=== PATIENT | female | born 1995 | race Caucasian/White ===

== ENCOUNTER 2024-12-31 05:03 | Inpatient (IN) ==
--- OUTSIDE RECORDS SUMMARY | 2024-12-31 05:14 | External Medical Summary ---
Author Name Unknown Address Unknown Organization [id number]:[facility] [address] [place] [address] Laboratory Report Ordering Provider Test Date Status KELLEY OLIVARES 11/02/2024 09:12:05 Final Observation Date Value Abnormality Reference (Units ) Status Glucose [Moles/volume] in Serum or Plasma --1 hour post 50 g glucose PO 11/02/2024 09:12:05 107 70-129 (mg/dL) Final Performing Location [facility] [address] [place] [address]
--- OUTSIDE RECORDS SUMMARY | 2024-12-31 05:14 | External Medical Summary | Summary of Care ---
Author Name Unknown Organization [facility] Address [address] [place] [address] Phone [phone] Care Team Providers Care Station Installer And Repairer Name Role Phone Theresa Capps DO Primary Care Provider [phone] [phone] Reason for Visit * Reason Comments Return Visit Encounter Details Date Type Department Care Team (Late st Contact Info) Description 12/25/2024 8:30 AM EDT Office Visit Gynecology/Obstetric s Lukas Salguero [address] [place] [address] BackKimberly harrison CRNP [address] [place] [phone] Normal in third trimester*; Maternal asthma complicating Allergies No known active allergiesdocumented as of this encounter (statuses as of 12/25/2024) Medications Ventolin HFA 108 (90 Base) MCG/ACT Inhalation Aerosol SolutionIndicati ons:Acute cough Inhale 2 Puffs by mouth every 4 hours as needed for Wheezing. 8 g 1 05/21/2024 Active Complete Oral Capsule Therapy Pack Take by mouth. Active Omeprazole Magnesium 20 MG Oral Tablet Delayed Release (PriLOSEC OTC) Take 1 Tablet by mouth in the morning. Active documented as of this encounter (statuses as of 12/25/2024) Active Problems Problem Noted Date Diagnosed Date Normal 07/09/2024 Maternal asthma complicating 4 Overview (07/09/2024): Exercise induced, rare inhaler use Other allergic rhinitis 05/06/2005 Overview (07/05/2017): ICD-10 update of inactive term Ocular migraine Exercise-induced asthma Estimated Date of Delivery Comme nts Yes 02/03/2025 Based on last me nstrual period of 04/29/2024 documented as of this encounter (statuses as of 12/25/2024) Immunizations Name Administration Dates Next Due HPV Vaccine, 4-Valent 01/10/2009,05/22/2008,07/0 09/2007 Meningococcal Conjugate Vacc ine (Menactra/Menveo) 03/12/2008 PPD 11/26/2015,11/19/2015 Seasonal Influenza Vac., MDV , IM, 0.5 mL (Fluzone) 07/22/2010 TDAP (age 10 and older)(Boostrix) 07/10/2018 TDAP, Age 7 and older, IM (Adacel) 11/13/2024, documented as of this encounter Social History Tobacco Use Types Packs/Day Years Used Date Smoking Tobacco: Never Smokeless Tobacco: Never Alcohol Use Standard Drinks/Week Comments Not Currently 0 (1 standard drink = 0.6 oz pur e alcohol) social PHQ-2 Answer Date Recorded PHQ-2 Score 0 06/06/2019 Hunger Vital Sign Answer Date Recorded Within the past 12 months, y ou worried that your food would run out before you got the money to buy more. Never true 09/21/19 25 Within the past 12 months, t he food you bought just didn't last and you didn't have money to get more. Never true 09/21/2024 [place] Depression Scale Answer Date Recorded [place] Depression Scale Total 5 12/11/2024 The thought of harming myself has occurred to me . Never 12/11/2024 Childcare Answer Date Recorded Do you feel overwhelmed with taking care of a child, family member or friend? No 09/21/2024 Does your family need help f inding childcare? (Household - for ages 0-17 years) Not on file 09/21/2024 Clothing Answer Date Recorded Have you been unable to get clothing when it was really needed? No 09/21/2024 Is your family able to get c lothes or diapers when needed? (Household - for ages 0-17 years) Not on file 09/21/2024 Personal Safety Answer Date Recorded Do you feel unsafe or have concerns for your saf ety? No 09/21/2024 Do you have concerns for you r family's safety? (Household - for ages 0-17 years) Not on file 09/21/2024 Utilities Answer Date Recorded Do you have trouble paying y our heating, water, or electric bill? No 09/21/2024 Is your family able to pay t he heat, water, or electric bill? (Household - for ages 0-17 years) Not on file 09/21/2024 Does your family have access to good internet? (Household - for ages 0-17 years) Not on file 09/21/2024 Employment Status Answer Date Recorded Are you unemployed or without regular income? No 09/21/2024 Does the household have a re lar source of income? (Household - for ages 0-17 years) Not on file 09/21/2024 Social Connections Answer Date Recorded How often do you feel lonely or isolated from th ose around you? Rarely 09/21/2024 Financial Resource Strain Answer Date R ecorded Do you have any trouble payi ng for your medications, or do you think you might in the future? No 09/21/2024 Does your family have troubl e paying for medicine? (Household - for ages 0-17 years) Not on file 09/21/2024 Transportation Needs Answer Date Record ed Do you have trouble getting a ride to medical visits or work? (Adult - for ages 18 years and over) Not on file 09/21/2024 Does your family have a hard time getting a ride to doctors visits? (Household - for ages 0-17 years) Not on file 09/21/2024 Has lack of transportation k ept you from medical appointments, meetings, work, or from getting things needed for daily living? Check all that apply. Yes, it has kept me from non-medical meetings, appointments, work, or from getting things that I need 09/21/2024 Do you (or your family) have trouble finding or paying for a ride (transportation)? (Household - for ages 0-17 years) Not on file 09/21/2024 Housing Stability Answer Date Recorded Do you currently live in a s helter or have no steady place to sleep at night? No 09/21/2024 Do you think you are at risk of becoming homeless? (Adult - for ages 18 years and over) Not on file 09/21/2024 Does your family worry about paying for your home or becoming homeless? (Household - for ages 0-17 years) Not on file 0 09/21/2024 Are you homeless or worried that you might be in the future? No 09/21/2024 Are you (or your family) unique eless or worried that you might be in the future? (Household - for ages 0-17 years) Not on file Food Insecurity Answer Date Recorded Do you need food for this week? No 09/21/2024 Are you able to get enough f ood for your family? (Household - for ages 0-17 years) Not on file 09/21/2024 Does your family need food t his week? (Household - for ages 0-17 years) Not on file 09/21/2024 Do you always have enough fo od for your family? (Household - for ages 0-17 years) Not on file 09/21/2024 Food Insecurity Answer Date Recorded Within the past 12 months, y ou worried that your food would run out before you got the money to buy more. Never true 09/21/19 25 Within the past 12 months, t he food you bought just didn't last and you didn't have money to get more. Never true 09/21/2024 Do you need food for this week? No 09/21/2024 Estimated Date of Delivery Comme nts Yes 02/03/2025 Based on last me nstrual period of 04/29/2024 Sex and Gender Information Value Date Recorded Sex Assigned at Female 10/01/2022 8:39 PM EST Legal Sex Female 7:11 AM EST Gender Identity Female 10/01/2022 8:39 PM EST Sexual Orientation Straight 10/01/2022 8: 39 PM EST documented as of this encounter Last Filed Vital Signs Vital Sign Reading Time Taken Comments Blood Pressure 110/64 12/25/2024 8:15 AM EDT Pulse - - Temperature - - Respiratory Rate - - Oxygen Saturation - - Inhaled Oxygen Concentration - - Weight 86.2 kg (190 lb) 12/25/2024 8:15 AM EDT Height 167.6 cm (5' 6") 12/25/2024 8:15 AM EDT Body Mass Index 30.67 12/25/2024 8:15 AM EDT documented in this encounter Progress Notes * Kimberly Crenshaw CRNP - 12/25/2024 8:21 AM EDT 34w2d Some mild cramping on and off. No regular ctx. Thinks she has been losing her mucus plug; notes occasional spotting with wiping since Tuesday after intercourse. Baby is moving well. No LOF. Normal growth us/ on 12/04. FMLA paperwork to nursing. On exam, no active bleeding or LOF. Cervix <1 cm dilated, long. Call office with increase in bleeding, concern for LOF, >4 painful ctx in 1 hr, or decreased FM. 2 week return, discussed GBS at that time. College Archivist Documentation Provider requested sample hand. Name of sample hand: VIRGILIO Parsons * Rosa Elena Long LPN - 12/25/2024 8:15 AM EDT 34w2d Started to lose mucus plug on sat and feels like it has been coming out for days Having spotting with wiping Did have intercourse sun and that is when bleeding started documented in this encounter Plan of Treatment Upcoming Encounters Date Type Department Care Team (Late st Contact Info) Description 01/08/2025 8:00 AM EDT [facility] [address] [place] [phone] Trista Mitchell CRNP [address] [address] Health Maintenance Due Date Last Done Comments Depression Screening 2005 Pneumococcal Vaccine: Pediatrics (0 to 5 Years) and At-Risk Patients (6 to 18 Years and 19+ Years) (1 of 2 - PCV) 01/08/2012 Lipid Panel 2013 HPV/Co-Test 2023 COVID-19 Vaccine (1 - season) 2024 *SPIROMETRY ONCE FOR ASTHMA-ADULT 07/11/2024 Influenza Vaccine (FLU shot) (Season Ended) 2025 07/22/2010, 07/10/2003 Cervical Cancer Screening 10/04/2025 Pap Smear 10/04/2025 10/04/2022, 05/14, 04/25/2015, Additional history exists DTap/Tdap Vaccines (9 - Td or Tdap) 11/13/2034 11/13/2024, 07/10/2018, 09/27/2006, Additional history exists Hepatitis B Vaccine Completed 1993, 1993, 1993 MENINGOCOCCAL (MENACTRA/MENVEO) Aged Out 03/12/2008 No longer eligible based on patient's age to complete this topic HPV (Gardasil) Vaccine Completed 9, 05/22/2008, 03/12/2008 Meningitis B Vaccine (Bexsero/Trumemba) Aged Out No longer eligible based on patient's age to complete this topic documented as of this encounter Goals Goal Patient Goal Type Associated Problems Recent Progress Patient-Stated? Author Reminders Care Plan OB Reminders No Mychart, Provider documented as of this encounter Medical Devices Not on filedocumented as of this encounter Visit Diagnoses Diagnosis Normal in third trimester- Primary Maternal asthma complicating Other current maternal conditions classifiable elsewhere, complicating , childbirth, or the puerperium, unspecified as to episode of care documented in this encounter Additional Health Concerns Active Problems Noted Date Diagnosed Date OB Reminders 07/12/2024 documented as of this encounter Care Teams Station Installer And Repairer Relationship Specialty Start Date End Date Theresa Capps DO [address] [place] [address] PCP - General Family Medicine 05/21/24 documented as of this encounter
--- OUTSIDE RECORDS SUMMARY | 2024-12-31 05:14 | External Medical Summary ---
Author Name Unknown Address Unknown Organization [id number]:[facility] [address] [facility] [place] [address] Laboratory Report Ordering Provider Test Date Status ELISEBACKER 11/02/2024 09:12:05 Final Observation Date Value Abnormality Reference (Units ) Status SYNC LEUKOCYTES IN BLOOD BY AUTOMATED COUNT 11/02/2024 09:12:05 9.84 4.00-10.80 (K/uL) Final Segs 11/02/2024 09:12:05 67.9 40.0-75.0 (%) Final Lymphs % 11/02/2024 09:12:05 22.0 18.0-42.0 (%) Final Monos 11/02/2024 09:12:05 6.6 1.0-11.0 (%) Final Eosinophils 11/02/2024 09:12:05 0.9 0.0-6.0 (%) Final Basos 11/02/2024 09:12:05 0.6 0.0-2.0 (%) Final Immature Granulocyte, Percent 11/02/2024 09:12:05 2.0 0.0-2.0 (%) Final Absolute Segs 11/02/2024 09:12:05 6.68 1.80-7.70 (K/uL) Final Lymphs, absolute 11/02/2024 09:12:05 2.16 1.00-4.80 (K/ul) Final Monos, Abs 11/02/2024 09:12:05 0.65 0.00-1.10 (K/uL) Final Eos, Abs 11/02/2024 09:12:05 0.09 0.00-0.70 (K/uL) Final Basos, Abs 11/02/2024 09:12:05 0.06 0.00-0.20 (K/uL) Final Immature Granulocytes, Number 11/02/2024 09:12:05 0.20 0.00-0.20 (K/uL) Final Performing Location [facility] [address] [facility] [address]
--- OUTSIDE RECORDS SUMMARY | 2024-12-31 05:14 | External Medical Summary | Summary of Care ---
Author Name Unknown Organization [facility] Address [address] [place] [address] Phone [phone] Care Team Providers Care Manufacturing Laborer Name Role Phone Theresa Capps DO Primary Care Provider [phone] [phone] Reason for Visit * Reason Onset Date Comments Advice 12/24/[address] Mancilla er Encounter Details Date Type Department Care Team (Late st Contact Info) Description 12/24/2024 Telephone Gynecology/Obstetrics [facility] [address] [place] [address] Esau Ordonez MD [address] [place] [phone] Advice (Rev with Dr. Ordonez) Allergies No known active allergiesdocumented as of this encounter (statuses as of 12/24/2024) Medications Ventolin HFA 108 (90 Base) MCG/ACT [...] as of this encounter (statuses as of 12/24/2024) Active Problems Problem Noted Date Diagnosed Date Normal 07/09/2024 Maternal asthma complicating Overview (07/09/2024): Exercise induced, rare inhaler use Other allergic rhinitis 05/06/2005 Overview (07/05/2017): ICD-10 update of inactive term Ocular migraine Exercise-induced asthma Estimated Date of Delivery Comme nts Yes 02/03/2025 Based on last me nstrual period of 04/29/2024 documented as of this encounter (statuses as of 12/24/2024) Immunizations Name Administration Dates Next Due DTP/HIB (Tetramune) 1993,1993 DTWP - Dipth/Tet/Whole Cell Pertussis 1993 DTaP Dipth/Tet/Acell Pertussis (Infanrix), Peds 01/14/1998,07/02/1994 HPV Vaccine, 4-Valent 01/10/2009,05/22/2008,09/2007 Haemophilius B (HIB), unspecified 03/31/1994, Hepatitis B Vaccine 1993,1993,1992 IPV - Polio Virus Vaccine (Inact) 01/14/1998 MMR - Measles/Mumps/Rubella Vaccine 01/14/1998,0 03/31/1994 Meningococcal Conjugate Vacc ine (Menactra/Menveo) 03/12/2008 OPV - Polio Virus Vaccine (Oral) 07/02/1994,0904/1993,1993 PPD 11/26/2015,11/19/2015 Seasonal Influenza Vac., MDV , IM, 0.5 mL (Fluzone) 07/22/2010,07/10/2003 TDAP (age 10 and older)(Boostrix) 07/10/2018 TDAP, [...] money to get more. Never true 09/21/2024 [place] Depression Scale Answer Date Recorded [place] Depression Scale Total 5 12/11/2024 The thought [...] 09/21/2024 Does the household have a re gular source of income? (Household - for ages [...] PM EST documented as of this encounter Miscellaneous Notes * Telephone Encounter - Tracey Goldman RN - 12/24/2024 10:30 AM EDT Patient called and made aware of advice from Dr. Ordonez, Advised her to call with any changes. She verbalized understanding. * Telephone Encounter - Tracey Goldman RN - 12/24/2024 10:12 AM EDT Patient reviewed with Dr. Ordonez, She is to monitor, not concerned at this time, call with any changes [facility] * Telephone Encounter - Tracey Goldman RN - 12/24/2024 9:20 AM EDT Patient calling in , she is 34w1d states that she thinks she lost her mucus plug over the past couple of days, has a thick mucus like discharge, now since last night started spotting on and off , noticed it on toilet paper with wiping, but not every time she used the restroom. Today it is now blood mixed in a mucus discharge Denies pain pelvic/abd pain, no heavy bleeding + FM this morning Denies clear fluid leaking + pelvic pressure, that is not new/ongoing No contractions. Patient has BRANDON appt in office tomorrow AM. Advised patient to monitor for any new symptoms, monitor movements and contact office with any changes. Please advise. documented in this encounter Plan of Treatment Upcoming Encounters Date Type Department Care Team (Late st Contact Info) Description 12/25/2024 8:30 AM EDT Office Visit Gynecology/Obstetrics [facility] [address] [place] [phone] Backer, VIRGILIO Crane [address] [place] [address] Health Maintenance Due Date Last Done Comments Depression Screening 2005 Pneumococcal Vaccine: Pediatrics (0 to 5 Years) and At-Risk Patients (6 to 18 Years and 19+ Years) (1 of 2 - PCV) 01/08/2012 Lipid Panel 2013 HPV/Co-Test 2023 COVID-19 Vaccine ( - season) 2024 *SPIROMETRY ONCE FOR ASTHMA-ADULT [...] Not on filedocumented as of this encounter Additional Health Concerns Active Problems Noted Date Diagnosed Date OB Reminders 07/12/2024 documented as of this encounter Care Teams Manufacturing Laborer Relationship Specialty Start Date End Date Theresa Capps DO [address] [place] [address] PCP - General Family Medicine 05/21/24 documented as of this encounter
--- OUTSIDE RECORDS SUMMARY | 2024-12-31 05:14 | External Medical Summary | Summary of Care ---
Author Name Unknown Organization [facility] Address [address] [place] [address] Phone [phone] Care Team Providers Care Rolling Mill Operator Name Role Phone Theresa Capps DO Primary Care Provider [phone] [phone] Reason for Visit * Reason Comments Return Visit Encounter Details Date Type Department Care Team (Late st Contact Info) Description 11/02/2024 8:30 AM EST Office Visit Gynecology/Obstetric s Luk[facility] Salguero [address] [place] [address] Trista Mitchell CRNP [address] [place] [address] Normal in second trimester*; Maternal asthma complicating Allergies No known active allergiesdocumented as of this encounter (statuses as of 11/02/2024) Medications Ventolin HFA 108 (90 Base) MCG/ACT Inhalation Aerosol SolutionIndicati ons:Acute cough Inhale 2 Puffs by mouth every 4 hours as needed for Wheezing. 8 g 1 05/21/2024 Active Complete Oral Capsule Therapy Pack Take by mouth. Active documented as of this encounter (statuses as of 11/02/2024) Active Problems Problem Noted Date Diagnosed Date Normal 07/09/2024 Maternal asthma complicating Overview (07/09/2024): Exercise induced, rare inhaler use Other allergic rhinitis 05/06/2005 Overview (07/05/2017): ICD-10 update of inactive term Ocular migraine Exercise-induced asthma Estimated Date of Delivery Comme nts Yes 02/03/2025 Based on last me nstrual period of 04/29/2024 documented as of this encounter (statuses as of 11/02/2024) Immunizations Name Administration Dates Next Due HPV Vaccine, 4-Valent 01/10/2009,05/22/2008,07/0 09/2007 Meningococcal Conjugate Vacc ine (Menactra/Menveo) 03/12/2008 PPD 11/26/2015,11/19/2015 Seasonal Influenza Vac., MDV , IM, 0.5 mL (Fluzone) 07/22/2010 TDAP (age 10 and older)(Boostrix) 07/10/2018 TDAP, Age 7 and older, IM (Adacel) 09/27/2006 documented as of this encounter Social History [...] money to get more. Never true 09/21/2024 [place] Depression Scale Answer Date Recorded [place] Depression Scale Total 9 07/09/2024 The thought of harming myself has occurred to me . Never 07/09/2024 Childcare Answer Date Recorded Do you feel [...] Sign Reading Time Taken Comments Blood Pressure 106/64 11/02/2024 8:20 AM EST Pulse - - Temperature - - Respiratory Rate - - Oxygen Saturation - - Inhaled Oxygen Concentration - - Weight 81.2 kg (179 lb) 11/02/2024 8:20 AM EST Height 167.6 cm (5' 6") 11/02/2024 8:20 AM EST Body Mass Index 28.89 11/02/2024 8:20 AM EST documented in this encounter Progress Notes * Trista Mitchell CRNP - 11/02/2024 8:49 AM EST 26w5d C/o heartburn. Tums not helping. Suggested omeprazole daily. No other concerns. Baby is active. No contractions or bleeding. Glucola today. TDAP next visit. VIRGILIO Alonso documented in this encounter Nursing Notes * Rosa Elena Long LPN - 11/02/2024 8:20 AM EST 26w5d Doing glucola today documented in this encounter Plan of Treatment Upcoming Encounters Date Type Department Care Team (Late st Contact Info) Description 11/13/2024 8:45 AM EST Office Visit Gynecology/Obstetrics [facility] [address] [address] BackerKimberly CRNP [address] [place] [address] Health Maintenance Due Date Last Done Comments Pneumococcal Vaccine: Pediatrics (0 to 5 Years) and At-Risk Patients (6 to 18 Years and 19+ Years) (1 of 2 - PCV) 01/08/2012 Depression Screening 06/06/2020 06/06/2019 HPV/Co-Test 2023 COVID-19 Vaccine ( - season) 2024 Influenza Vaccine (FLU shot) (#1) 2024 07/22/2010, 07/10/2003 *SPIROMETRY ONCE FOR ASTHMA-ADULT 07/11/2024 Cervical Cancer Screening 10/04/2025 Pap Smear 10/04/2025 10/04/2022, 05/14, 04/25/2015, Additional history exists DTap/Tdap Vaccines (8 - Td or Tdap) 07/10/2028 07/10/2018, 09/27/2006, 01/14/1998, Additional history exists Hepatitis B Vaccine Completed [...] Author Reminders Care Plan OB Reminders No Dorishart, Provider documented as of this encounter Medical Devices Not on filedocumented as of this encounter Visit Diagnoses Diagnosis Normal in second trimester- Primary Maternal asthma complicating Other current maternal conditions classifiable elsewhere, complicating , childbirth, or the puerperium, unspecified as to episode of care documented in this encounter Additional Health Concerns Active Problems Noted Date Diagnosed Date OB Reminders 07/12/2024 documented as of this encounter Care Teams Rolling Mill Operator Relationship Specialty Start Date End Date Theresa Capps DO [address] [address] PCP - General Family Medicine 05/21/24 documented as of this encounter
--- OUTSIDE RECORDS SUMMARY | 2024-12-31 05:14 | External Medical Summary | Summary of Care ---
Author Name Unknown Organization [facility] Address [address] [place] [address] Phone [phone] Care Team Providers Care Roving Winder Name Role Phone Theresa Capps DO Primary Care Provider +1 [phone] Reason for Visit * Reason Comments Return Visit Encounter Details Date Type Department Care Team (Late st Contact Info) Description 09/07/2024 11:30 AM EST Office Visit Gynecology/Obstetric s Luk[facility] Salguero [address] [place] [address] BackKimberly harrison CRNP [address] [place] [address] Normal in second trimester*; Maternal asthma complicating Allergies No known active allergiesdocumented as of this encounter (statuses as of 09/07/2024) Medications Ventolin HFA 108 (90 Base) MCG/ACT Inhalation Aerosol SolutionIndicati ons:Acute cough Inhale 2 Puffs by mouth every 4 hours as needed for Wheezing. 8 g 1 05/21/2024 Active Complete Oral Capsule Therapy Pack Take by mouth. Active documented as of this encounter (statuses as of 09/07/2024) Active Problems Problem Noted Date Diagnosed Date Normal 07/09/2024 Maternal asthma complicating Overview (07/09/2024): Exercise induced, rare inhaler use Other allergic rhinitis 05/06/2005 Overview (07/05/2017): ICD-10 update of inactive term Ocular migraine Exercise-induced asthma Estimated Date of Delivery Comme nts Yes 02/03/2025 Based on last me nstrual period of 04/29/2024 documented as of this encounter (statuses as of 09/07/2024) Immunizations Name Administration Dates Next Due HPV [...] the money to buy more. Never true 09/06/20 24 Within the past 12 months, t he food you bought just didn't last and you didn't have money to get more. Never true 09/06/2024 [place] Depression Scale Answer Date Recorded [place] Depression Scale Total 9 07/09/2024 The thought of harming myself has occurred to me . Never 07/09/2024 Childcare Answer Date Recorded Do you feel overwhelmed with taking care of a child, family member or friend? No 09/06/2024 Does your family need help f inding childcare? (Household - for ages 0-17 years) Not on file 09/06/2024 Clothing Answer Date Recorded Have you been unable to get clothing when it was really needed? No 09/06/2024 Is your family able to get c lothes or diapers when needed? (Household - for ages 0-17 years) Not on file 09/06/2024 Personal Safety Answer Date Recorded Do you feel unsafe or have concerns for your saf ety? No 09/06/2024 Do you have concerns for you r family's safety? (Household - for ages 0-17 years) Not on file 09/06/2024 Utilities Answer Date Recorded Do you have trouble paying y our heating, water, or electric bill? No 09/06/2024 Is your family able to pay t he heat, water, or electric bill? (Household - for ages 0-17 years) Not on file 09/06/2024 Does your family have access to good internet? (Household - for ages 0-17 years) Not on file 09/06/2024 Employment Status Answer Date Recorded Are you unemployed or without regular income? No 09/06/2024 Does the household have a re lar source of income? (Household - for ages 0-17 years) Not on file 09/06/2024 Social Connections Answer Date Recorded How often do you feel lonely or isolated from th ose around you? Rarely 09/06/2024 Financial Resource Strain Answer Date R ecorded Do you have any trouble payi ng for your medications, or do you think you might in the future? No 09/06/2024 Does your family have troubl e paying for medicine? (Household - for ages 0-17 years) Not on file 09/06/2024 Transportation Needs Answer Date Record ed Do you have trouble getting a ride to medical visits or work? (Adult - for ages 18 years and over) Not on file 09/06/2024 Does your family have a hard time getting a ride to doctors visits? (Household - for ages 0-17 years) Not on file 09/06/2024 Has lack of transportation k ept you from medical appointments, meetings, work, or from getting things needed for daily living? Check all that apply. No 09/06/2024 Do you (or your family) have trouble finding or paying for a ride (transportation)? (Household - for ages 0-17 years) Not on file 09/06/2024 Housing Stability Answer Date Recorded Do you currently live in a s helter or have no steady place to sleep at night? No 09/06/2024 Do you think you are at risk of becoming homeless? (Adult - for ages 18 years and over) Not on file 09/06/2024 Does your family worry about paying for your home or becoming homeless? (Household - for ages 0-17 years) Not on file 1 11/07/2023 Are you homeless or worried that you might be in the future? No 09/06/2024 Are you (or your family) unique eless or worried that you might be in the future? (Household - for ages 0-17 years) Not on file Food Insecurity Answer Date Recorded Do you need food for this week? No 09/06/2024 Are you able to get enough f ood for your family? (Household - for ages 0-17 years) Not on file 09/06/2024 Does your family need food t his week? (Household - for ages 0-17 years) Not on file 09/06/2024 Do you always have enough fo od for your family? (Household - for ages 0-17 years) Not on file 09/06/2024 Estimated Date of Delivery Comme nts Yes [...] Sign Reading Time Taken Comments Blood Pressure 118/78 09/07/2024 11:34 AM EST Pulse - - Temperature - - Respiratory Rate - - Oxygen Saturation - - Inhaled Oxygen Concentration - - Weight 76.6 kg (168 lb 15.4 oz) 024 11:34 AM EST Height - - Body Mass Index 27.27 07/09/2024 9:23 AM EDT documented in this encounter Progress Notes * Kimberly Crenshaw CRNP - 09/07/2024 11:45 AM EST 18w5d Doing well, no movement yet. Occasional mild cramping. No bleeding. Asthma well controlled. Discussed MSAFP and role in screening for ONTD; pt wishes to check insurance coverage. Provided with CPT code, advised to do testing by 22w6d. Return visit in 4 weeks; will schedule anatomy scan at 20 weeks. VIRGILIO [place] * Brionna Gregg CMA - 09/07/2024 11:34 AM EST 18w5d Denies any concerns documented in this encounter Plan of Treatment Upcoming Encounters Date Type Department Care Team (Late st Contact Info) Description 09/21/2024 8:15 AM EST Imaging Radiology [facility] [address] [place] [address] 10/05/2024 8:45 AM EST Office Visit Gynecology/Obstetrics [facility] [address] [place] [address] Kimberly Crenshaw CRNP [address] [place] [address] Scheduled Orders Name Type Priority Associated Diagnoses Orde r Schedule US PREG SINGLE/1ST GEST, 14 WEEKS OR LATER Medical Imaging Routine Normal in second trimester Expected: 09/17/2024 (Approximate), Expires: 10/08/2025 Health Maintenance Due Date Last Done Comments [...] HPV (Gardasil) Vaccine Completed 9, 05/22/2008, 03/12/2008 documented as of this encounter Goals Goal [...] documented as of this encounter Care Teams Roving Winder Relationship Specialty Start Date End Date Theresa aCpps DO [address] [place] [address] PCP - General Family Medicine 05/21/24 documented as of this encounter
--- OUTSIDE RECORDS SUMMARY | 2024-12-31 05:14 | External Medical Summary | Summary of Care ---
Author Name Unknown Organization [facility] Address [address] [place] [address] Phone [phone] Care Team Providers Care Cooker Mechanic Name Role Phone Theresa Capps DO Primary Care Provider +1 [phone] Reason for Visit * Reason Comments Return Visit Encounter Details Date Type Department Care Team (Late st Contact Info) Description 11/13/2024 8:45 AM EST Office Visit Gynecology/Obstetric s [facility] [address] [place] [address] BackKimberly harrison CRNP [address] [place] [address] Normal in third trimester*; Maternal asthma complicating ; Need for prophylactic vaccination with combined dmukokwwct-pkxtrtz-hf rtussis (DTP) vaccine Allergies No known active allergiesdocumented as of this encounter (statuses as of 11/13/2024) Medications Ventolin HFA 108 (90 Base) MCG/ACT [...] as of this encounter (statuses as of 11/13/2024) Active Problems Problem Noted Date Diagnosed Date Normal 07/09/2024 Maternal asthma complicating 4 Overview (07/09/2024): Exercise induced, rare inhaler use Other allergic rhinitis 05/06/2005 Overview (07/05/2017): ICD-10 update of inactive term Ocular migraine Exercise-induced asthma Estimated Date of Delivery Comme nts Yes 02/03/2025 Based on last me nstrual period of 04/29/2024 documented as of this encounter (statuses as of 11/13/2024) Immunizations Name Administration Dates Next Due HPV [...] money to get more. Never true 09/21/2024 [place] Depression Scale Answer Date Recorded [place] Depression Scale Total 9 07/09/2024 The thought [...] No 09/21/2024 Does the household have a [facility] source of income? (Household - for ages [...] Sign Reading Time Taken Comments Blood Pressure 118/58 11/13/2024 8:41 AM EST Pulse - - Temperature - - Respiratory Rate - - Oxygen Saturation - - Inhaled Oxygen Concentration - - Weight 82.2 kg (181 lb 3.2 oz) 11/13/2024 8:41 A M EST Height 167.6 cm (5' 6") 11/13/2024 8:41 AM EST Body Mass Index 29.25 11/13/2024 8:41 AM EST documented in this encounter Progress Notes * Kimberly Crenshaw CRNP - 11/13/2024 8:56 AM EST 28w2d Doing well, good movement. Discussed [facility] and when to call with concerns. Denies ctx, leaking, bleeding. Accepts Tdap, discussed ensuring others are up to date on pertussis vaccine. Some RUQ pain, relieved with massage or position changes. Tends to occur when she's full. Reassured, call if more persistent or intense. BP is normal. Taking prilosec for heartburn, working well; can take BID if needed. Encouraged to look into childbirth classes. 2 week return VIRGILIO [place] * Kristina Rosas LPN - 11/13/2024 8:43 AM EST 28w2d Having some vomiting d/t heightened gag reflex. Having some acid reflux taking Omeprazole and helping but not completely taking away Having some right sided pain near ribs, but states it does go away. States feeling it after eating/drinking a lot lasting about a half an hr at a time. Pain relief by changing positions. Off and on through out the day. documented in this encounter Nursing Notes * Kristina Rosas LPN - 11/13/2024 9:01 AM EST Patient here for TDAP injection. Patient doing well no complaints. Injection given IM as ordered. Patient tolerated well. Patient to follow up as directed. Patient instructed to call if any complications. Patient verbalized understanding of instructions given. Injection site: Left Deltoid Medication Source: Dispensed stock medication documented in this encounter Plan of Treatment Upcoming Encounters Date Type Department Care Team (Late st Contact Info) Description 11/29/2024 8:15 AM EDT Office Visit Gynecology/Obstetrics [facility] [address] [place] [address] Kimberly Crenshaw CRNP [address] [place] [address] Health Maintenance Due Date Last Done Comments [...] puerperium, unspecified as to episode of care Need for prophylactic vaccination with combined kpjckdkioy-femapau-hmkqyappa (DTP) vaccine documented in this encounter Additional Health Concerns Active Problems Noted Date Diagnosed Date OB Reminders 07/12/2024 documented as of this encounter Care Teams Cooker Mechanic Relationship Specialty Start Date End Date Theresa Capps DO [address] [place] [address] PCP - General Family Medicine 05/21/24 documented as of this encounter
--- OUTSIDE RECORDS SUMMARY | 2024-12-31 05:14 | External Medical Summary ---
Author Name Unknown Address Unknown Organization K01[place] [place] [address] [facility] [address] Laboratory Report Ordering Provider Test Date Status KELLEY OLIVARES 11/02/2024 09:12:05 Final Observation Date Value Abnormality Reference (Units ) Status Treponema pallidum Ab [Presence] in Serum by Immunoassay 11/02/2024 09:12:05 Nonreactive Nonreactive Final No serologic evidence of syp hilis. No additional testing clinicially indicated at this time. Consider repeat testing in 2-4 weeks if acute or primary syphilis is suspected. Performing Location [facility] [place] [address] [place] [address]
--- OUTSIDE RECORDS SUMMARY | 2024-12-31 05:14 | External Medical Summary | Summary of Care ---
Author Name Unknown Organization [facility] Address [address] [place] [address] Phone [phone] Care Team Providers Care Substation Operator Automatic Name Role Phone Theresa Capps DO Primary Care Provider +1 [phone] Reason for Visit * Reason Onset Date Comments Advice 12/24/[address] Mancilla er Encounter Details Date Type Department Care Team (Late st Contact Info) Description 12/24/2024 Telephone Gynecology/Obstetrics [facility] [address] [place] [address] Esau Ordonez MD [address] [place] [address] Advice (Rev with Dr. Ordonez) Allergies No [...] money to get more. Never true 09/21/2024 [place] Depression Scale Answer Date Recorded [place] Depression Scale Total 5 12/11/2024 The thought [...] with any changes [facility] * Telephone Encounter - Tracey Goldman [...] Luk[facility] Salguero [address] [place] [address] Backer, VIRGILIO Crane [address] [place] [address] Health Maintenance Due Date Last Done Comments [...] documented as of this encounter Care Teams Substation Operator Automatic Relationship Specialty Start Date End Date Theresa Capps DO [address] [place] [address] PCP - General Family Medicine 05/21/24 documented as of this encounter
--- OUTSIDE RECORDS SUMMARY | 2024-12-31 05:14 | External Medical Summary | Summary of Care ---
Author Name Unknown Organization [facility] Address [address] [place] [address] Phone [phone] Care Team Providers Care Visual Stylist Name Role Phone Theresa Capps DO Primary Care Provider +1 [phone] Reason for Visit * Reason Comments Return Visit Encounter Details Date Type Department Care Team (Late st Contact Info) Description 10/05/2024 8:45 AM EST Office Visit Gynecology/Obstetric s Luk[facility] Salguero [address] [place] [address] BackKimberly harrison CRNP [address] [place] [address] Normal in second trimester*; Maternal asthma complicating Allergies No known active allergiesdocumented as of this encounter (statuses as of 10/05/2024) Medications Ventolin HFA 108 (90 Base) MCG/ACT Inhalation Aerosol SolutionIndicati ons:Acute cough Inhale 2 Puffs by mouth every 4 hours as needed for Wheezing. 8 g 1 05/21/2024 Active Complete Oral Capsule Therapy Pack Take by mouth. Active documented as of this encounter (statuses as of 10/05/2024) Active Problems Problem Noted Date Diagnosed Date Normal 07/09/2024 Maternal asthma complicating Overview (07/09/2024): Exercise induced, rare inhaler use Other allergic rhinitis 05/06/2005 Overview (07/05/2017): ICD-10 update of inactive term Ocular migraine Exercise-induced asthma Estimated Date of Delivery Comme nts Yes 02/03/2025 Based on last me nstrual period of 04/29/2024 documented as of this encounter (statuses as of 10/05/2024) Immunizations Name Administration Dates Next Due HPV [...] money to get more. Never true 09/21/2024 [place] Depression Scale Answer Date Recorded [place] Depression Scale Total 9 07/09/2024 The thought [...] ages 0-17 years) Not on file 09/21/2024 Estimated Date of Delivery Comme nts [...] Sign Reading Time Taken Comments Blood Pressure 104/60 10/05/2024 8:46 AM EST Pulse - - Temperature - - Respiratory Rate - - Oxygen Saturation - - Inhaled Oxygen Concentration - - Weight 78.5 kg (173 lb) 10/05/2024 8:46 AM EST Height - - Body Mass Index 27.92 07/09/2024 9:23 AM EDT documented in this encounter Progress Notes * Kimberly Crenshaw CRNP - 10/05/2024 8:52 AM EST 22w5d + movement. No severe cramping/bleeding. Breast pump form completed for pt. Labs with next visit, return in 4 weeks. VIRGILIO [place] * Hanna Montes LPN - 10/05/2024 8:45 AM EST 22w5d Denies vaginal bleeding/rom + movement No new concerns documented in this encounter Plan of Treatment Upcoming Encounters Date Type Department Care Team (Late st Contact Info) Description 11/02/2024 8:20 AM EST Laboratory Laboratory, [facility] [address] [place] [id number] [facility] [address] [place] [address] 11/02/2024 8:30 AM EST Office Visit Gynecology/Obstetrics [facility] [address] [place] [address] Trista Mitchell CRNP [address] [place] [address] Scheduled Orders Name Type Priority Associated Diagnoses Orde r Schedule 50-G GESTATIONAL GLUCOSE, 1 HOUR Lab Routine Normal in second trimester Expected: 11/05/2024 (Approximate), Expires: 10/05/2025 CBC WITH WBC DIFFERENTIAL AND ANEMIA REFLEX WORKUP Lab Routine Normal in second trimester Expected: 11/05/2024 (Approximate), Expires: 10/05/2025 SYPHILIS ANTIBODY SCREEN WITH REFLEX TO RPR Lab Routine Normal in second trimester Expected: 11/05/2024 (Approximate), Expires: 10/05/2025 Health Maintenance Due Date Last Done Comments Pneumococcal Vaccine: Pediatrics (0 to 5 Years) and At-Risk Patients (6 to 18 Years and 19+ Years) (1 of 2 - PCV) 01/08/2012 Depression Screening 06/06/2020 06/06/2019 HPV/Co-Test 2023 COVID-19 Vaccine ( - 2024-25 season) 2024 Influenza Vaccine (FLU shot) (#1) [...] Author Reminders Care Plan OB Reminders No Gilt, Provider documented as of this encounter Medical [...] documented as of this encounter Care Teams Visual Stylist Relationship Specialty Start Date End Date Theresa Capps DO [address] [place] [address] PCP - General Family Medicine 05/21/24 documented as of this encounter
--- OUTSIDE RECORDS SUMMARY | 2024-12-31 05:14 | External Medical Summary | Summary of Care ---
Author Name Unknown Organization [facility] Address [address] [place] [address] Phone [phone] Care Team Providers Care Pattern Chain Builder Name Role Phone Theresa Capps DO Primary Care Provider +1 [phone] Encounter Details Date Type Department Care Team (Late st Contact Info) Description 09/24/2024 Telephone Gynecology/Obstetrics [facility] [address] [facility] [place] [address] BackerKimberly CRNP [address] [facility] [place] [address] Allergies No known active allergiesdocumented as of this encounter (statuses as of 09/24/2024) Medications Ventolin HFA 108 (90 Base) MCG/ACT Inhalation Aerosol SolutionIndicati ons:Acute cough Inhale 2 Puffs by mouth every 4 hours as needed for Wheezing. 8 g 1 05/21/2024 Active Complete Oral Capsule Therapy Pack Take by mouth. Active documented as of this encounter (statuses as of 09/24/2024) Active Problems Problem Noted Date Diagnosed Date Normal 07/09/2024 Maternal asthma complicating Overview (07/09/2024): Exercise induced, rare inhaler use Other allergic rhinitis 05/06/2005 Overview (07/05/2017): ICD-10 update of inactive term Ocular migraine Exercise-induced asthma Estimated Date of Delivery Comme nts Yes 02/03/2025 Based on last me nstrual period of 04/29/2024 documented as of this encounter (statuses as of 09/24/2024) Immunizations Name Administration Dates Next Due HPV [...] money to get more. Never true 09/21/2024 [place] Depression Scale Answer Date Recorded [place] Depression Scale Total 9 07/09/2024 The thought [...] encounter Miscellaneous Notes * Telephone Encounter - Prisca Villarreal LPN - 09/24/2024 8:48 AM EST Pt called in stating that she had consumed spoiled milk. Pt expressed concerns about spoiled milk in relation to the . This nurse educated pt to monitor for digestive symptoms and on diet precautions while . Pt agreeable. Prisca Villarreal LPN 09/24/2024 8:50 AM documented in this encounter Plan of Treatment Upcoming Encounters Date Type Department Care Team (Late st Contact Info) Description 10/05/2024 8:45 AM EST Office Visit Gynecology/Obstetrics [address] [place] [address] Kimberly Crenshaw CRNP [address] [place] [address] Health Maintenance Due Date Last Done Comments Pneumococcal Vaccine: Pediatrics (0 to 5 Years) and At-Risk Patients (6 to 18 Years and 19+ Years) (1 of 2 - PCV) 01/08/2012 Depression Screening 06/06/2020 06/06/2019 HPV/Co-Test 2023 COVID-19 Vaccine (1 - season) 2024 Influenza Vaccine (FLU shot) [...] Author Reminders Care Plan OB Reminders No Hayley, Provider documented as of this encounter Medical Devices Not on filedocumented as of this encounter Additional Health Concerns Active Problems Noted Date Diagnosed Date OB Reminders 07/12/2024 documented as of this encounter Care Teams Pattern Chain Builder Relationship Specialty Start Date End Date Theresa Capps DO [address] [place] [address] PCP - General Family Medicine 05/21/24 documented as of this encounter
--- OUTSIDE RECORDS SUMMARY | 2024-12-31 05:14 | External Medical Summary | Summary of Care ---
Author Name Unknown Organization [facility] Address [address] [place] [address] Phone [phone] Care Team Providers Care Communications Professional Name Role Phone Theresa Capps DO Primary Care Provider +[phone] Reason for Visit * Reason Onset Date Comments Advice 12/24/[address] Mancilla er Encounter Details Date Type Department Care Team (Late st Contact Info) Description 12/24/2024 Telephone Gynecology/Obstetrics [facility] [address] [place] [address] Esau Ordonez MD [address] [place] [address] Advice (Rev with Dr. Ordonez) Allergies No [...] money to get more. Never true 09/21/2024 [place] Depression Scale Answer Date Recorded [place] Depression Scale Total 5 12/11/2024 The thought [...] and made aware of advice from Dr. Ordnoez, Advised her to call with any changes. She verbalized understanding. * Telephone Encounter - Tracey Goldman RN - 12/24/2024 10:12 AM EDT Patient reviewed with Dr. Ordonez, She is to monitor, not concerned at this time, call with any changes and [facility]. * Telephone Encounter - Tracey Goldman [...] Luk[facility] Salguero [address] [place] [address] Backer, VIRGILIO Crane [address] [place] [address] Health Maintenance Due Date Last Done Comments [...] documented as of this encounter Care Teams Communications Professional Relationship Specialty Start Date End Date Theresa Capps DO [address] [place] [address] PCP - General Family Medicine 05/21/24 documented as of this encounter
--- OUTSIDE RECORDS SUMMARY | 2024-12-31 05:14 | External Medical Summary | Summary of Care ---
Author Name Unknown Organization [facility] Address [address] [place] [address] Phone [phone] Care Team Providers Care Hydrography Teacher Name Role Phone Theresa Capps DO Primary Care Provider [phone] Reason for Visit * Reason Onset Date Comments Advice 12/24/[address] Mancilla er Encounter Details Date Type Department Care Team (Late st Contact Info) Description 12/24/2024 Telephone Gynecology/Obstetrics [facility] [address] [place] [address] Esau Ordonez MD [address] [place] [address] Advice (Rev with Dr. Ordonez) Allergies No [...] money to get more. Never true 09/21/2024 [place] Depression Scale Answer Date Recorded [place] Depression Scale Total 5 12/11/2024 The thought [...] with any changes [facility]. * Telephone Encounter - Tracey Goldman [...] Lukas Salguero [address] [place] [address] Backer, VIRGILIO Crane [address] [place] [address] Health Maintenance Due Date Last Done Comments [...] documented as of this encounter Care Teams Hydrography Teacher Relationship Specialty Start Date End Date Theresa Capps DO [address] [place] [address] PCP - General Family Medicine 05/21/24 documented as of this encounter
--- OUTSIDE RECORDS SUMMARY | 2024-12-31 05:14 | External Medical Summary | Summary of Care ---
Author Name Unknown Organization [facility] Address [address] [place] [address] Phone [phone] Care Team Providers Care Director Of Logistics Name Role Phone Theresa Capps DO Primary Care Provider [phone] [phone] Reason for Visit * Reason Comments Outpatient Testing Encounter Details Date Type Department Care Team (Late st Contact Info) Description 11/02/2024 8:20 AM EST Laboratory Laboratory, [facility] [address] [place] [place] [id number] [facility] [address] [place] [address] Normal in second trimester Allergies No known active allergiesdocumented as of [...] money to get more. Never true 09/21/2024 [place] Depression Scale Answer Date Recorded [place] Depression Scale Total 9 07/09/2024 The thought [...] No 09/21/2024 Does the household have a [facility] source of income? (Household - for ages [...] PM EST documented as of this encounter Plan of Treatment Upcoming Encounters Date Type Department Care Team (Late st Contact Info) Description 11/13/2024 8:45 AM EST Office Visit Gynecology/Obstetrics [facility] [address] [place] [phone] Kimberly Crenshaw CRNP [address] [place] [address] Pending Results Name Type Priority Associated Diagnoses Date /Time CBC WITH WBC DIFFERENTIAL AND ANEMIA REFLEX WORKUP Lab Routine Normal in second trimester 11/02/2024 9:12 AM EST SYPHILIS ANTIBODY SCREEN WITH REFLEX TO RPR Lab Routine Normal in second trimester 11/02/2024 9:12 AM EST ANEMIA CBC Lab Routine Normal in second trimester 11/02/2024 9:12 AM EST DIFFERENTIAL, AUTOMATED Lab Routine Normal in second trimester 11/02/2024 9:12 AM EST ANEMIA REFLEX CHEMISTRY HOLD Lab Routine Normal in second trimester 11/02/2024 9:12 AM EST SYPHILIS ANTIBODY SCREEN Lab Routine Normal in second trimester 11/02/2024 9:12 AM EST Health Maintenance Due Date Last Done Comments [...] Not on filedocumented as of this encounter Procedures Procedure Name Priority Date/Time Associated Diagnosis Comments 50-G GESTATIONAL GLUCOSE, 1 HOUR Routine 11/02/2024 9:12 AM EST Normal in second trimester documented in this encounter Results * 50-G GESTATIONAL GLUCOSE, 1 HOUR (11/02/2024 9:12 AM EST) 50-g Gestational Glucose, 1 Hour 107 70 - 129 mg/dL 11/02/2024 9:42 AM EST [facility]10 Blood Venous blood specimen / Unknown Venipuncture / Unknown 11/02/2024 9:12 AM EST 11/02/2024 9:12 AM EST Kimberly Rojas Backer [employer] BLOOD ORDERABLE S Final Result [facility] [address] [place] [address] documented in this encounter Visit Diagnoses Diagnosis Normal in second trimester documented in this encounter Additional Health Concerns Active Problems Noted Date Diagnosed Date OB Reminders 07/12/2024 documented as of this encounter Care Teams Director Of Logistics Relationship Specialty Start Date End Date Theresa Capps DO [address] [place] [address] PCP - General Family Medicine 05/21/24 documented as of this encounter
--- OUTSIDE RECORDS SUMMARY | 2024-12-31 05:14 | External Medical Summary | Summary of Care ---
Author Name Unknown Organization [facility] Address [address] [place] [address] Phone [phone] Care Team Providers Care Machine Heel Sprayer Name Role Phone Theresa Capps DO Primary Care Provider [phone] Reason for Visit * Reason Comments Return Visit Encounter Details Date Type Department Care Team (Late st Contact Info) Description 12/11/2024 8:00 AM EDT Office Visit Gynecology/Obstetric s Luk[facility] Salguero [address] [place] [address] Trista Mitchell CRNP [address] [place] [address] Normal in third trimester*; Maternal asthma complicating Allergies No known active allergiesdocumented as of this encounter (statuses as of 12/11/2024) Medications Ventolin HFA 108 (90 Base) MCG/ACT [...] as of this encounter (statuses as of 12/11/2024) Active Problems Problem Noted Date Diagnosed Date Normal 07/09/2024 Maternal asthma complicating Overview (07/09/2024): Exercise induced, rare inhaler use Other allergic rhinitis 05/06/2005 Overview (07/05/2017): ICD-10 update of inactive term Ocular migraine Exercise-induced asthma Estimated Date of Delivery Comme nts Yes 02/03/2025 Based on last me nstrual period of 04/29/2024 documented as of this encounter (statuses as of 12/11/2024) Immunizations Name Administration Dates Next Due HPV [...] money to get more. Never true 09/21/2024 [place] Depression Scale Answer Date Recorded [place] Depression Scale Total 9 07/09/2024 The thought [...] money to buy more. Never true 09/21/19 Within the past 12 months, t he [...] Reading Time Taken Comments Blood Pressure 118/78 12/11/2024 7:57 AM EDT Pulse - - Temperature - - Respiratory Rate - - Oxygen Saturation - - Inhaled Oxygen Concentration - - Weight 84.4 kg (186 lb) 12/11/2024 7:57 AM EDT Height - - Body Mass Index 30.02 11/13/2024 8:41 AM EST documented in this encounter Progress Notes * Trista Mitchell CRNP - 12/11/2024 8:12 AM EDT 32w2d No concerns. Baby is active. No contractions or bleeding. Reports some edema. Reviewed growth u/s from last week. VIRGILIO Alonso * Brionna Gregg CMA - 12/11/2024 7:56 AM EDT 32w2d Denies any concerns documented in this encounter Plan of Treatment Upcoming Encounters Date Type Department Care Team (Late st Contact Info) Description 12/25/2024 8:30 AM EDT Office Visit Gynecology/Obstetrics [facility] [address] [place] [address] BackKimberly harrison CRNP [address] [place] [address] Health Maintenance Due Date Last Done Comments [...] complete this topic HPV (Gardasil) Vaccine Completed , 05/22/2008, 03/12/2008 Meningitis B Vaccine (Bexsero/Trumemba) Aged [...] documented as of this encounter Care Teams Machine Heel Sprayer Relationship Specialty Start Date End Date Theresa Capps DO [address] [address] PCP - General Family Medicine 05/21/24 documented as of this encounter
--- OUTSIDE RECORDS SUMMARY | 2024-12-31 05:14 | External Medical Summary | Summary of Care ---
Author Name Unknown Organization [facility] Address [address] [place] [address] Phone [phone] Care Team Providers Care Tourist Adviser Name Role Phone Theresa Capps DO Primary Care Provider [phone] Reason for Visit * Reason Comments Return Visit Encounter Details Date Type Department Care Team (Late st Contact Info) Description 11/29/2024 8:15 AM EDT Office Visit Gynecology/Obstetric s Luk[facility] Salguero [address] [place] [address] Kimberly Crenshaw CRNP [address] [place] [address] Normal in third trimester*; Maternal asthma complicating ; Uterine size date discrepancy Allergies No known active allergiesdocumented as of this encounter (statuses as of 11/29/2024) Medications Ventolin HFA 108 (90 Base) MCG/ACT [...] as of this encounter (statuses as of 11/29/2024) Active Problems Problem Noted Date Diagnosed Date Normal 07/09/2024 Maternal asthma complicating Overview (07/09/2024): Exercise induced, rare inhaler use Other allergic rhinitis 05/06/2005 Overview (07/05/2017): ICD-10 update of inactive term Ocular migraine Exercise-induced asthma Estimated Date of Delivery Comme nts Yes 02/03/2025 Based on last me nstrual period of 04/29/2024 documented as of this encounter (statuses as of 11/29/2024) Immunizations Name Administration Dates Next Due HPV [...] money to get more. Never true 09/21/2024 [place] Depression Scale Answer Date Recorded [place] Depression Scale Total 9 07/09/2024 The thought [...] No 09/21/2024 Does the household have a [facility] source [facility]? (Household - for [...] Sign Reading Time Taken Comments Blood Pressure 100/60 11/29/2024 8:09 AM EDT Pulse - - Temperature - - Respiratory Rate - - Oxygen Saturation - - Inhaled Oxygen Concentration - - Weight 84.4 kg (186 lb) 11/29/2024 8:09 AM EDT Height - - Body Mass Index 30.02 11/13/2024 8:41 AM EST documented in this encounter Progress Notes * Kimberly Crenshaw CRNP - 11/29/2024 8:16 AM EDT 30w4d Good movement. No leaking/bleeding. Occasional cramping, nothing she can time. Received a breast pump. S<D, will schedule growth scan. 2 week return VIRGILIO [place] * Hanna Montes LPN - 11/29/2024 8:09 AM EDT 30w4d Denies vaginal bleeding/rom + movement No new concerns documented in this encounter Plan of Treatment Upcoming Encounters Date Type Department Care Team (Late st Contact Info) Description 12/04/2024 8:15 AM EDT Imaging Radiology [facility] [address] [place] [address] 12/11/2024 8:00 AM EDT Office Visit Gynecology/Obstetrics [facility] [address] [place] [address] Trista Mitchell CRNP [address] [facility] [place] [address] Scheduled Orders Name Type Priority Associated Diagnoses Orde r Schedule US PREG FOLLOW-UP EACH FETUS Medical Imaging Routine Normal in third trimester Uterine size date discrepancy Expected: 11/29/2024 (Approximate), Expires: 12/30/2025 Health Maintenance Due Date Last Done Comments Pneumococcal Vaccine: Pediatrics (0 to 5 Years) and At-Risk Patients (6 to 18 Years and 19+ Years) (1 of 2 - PCV) 01/08/2012 Depression Screening 06/06/2020 06/06/2019 HPV/Co-Test 2023 COVID-19 Vaccine ( season) 2024 Influenza Vaccine (FLU shot) (#1) [...] puerperium, unspecified as to episode of care Uterine size date discrepancy Uterine size date discrepancy, antepartum condition or complication documented in this encounter Additional Health Concerns Active Problems Noted Date Diagnosed Date OB Reminders 07/12/2024 documented as of this encounter Care Teams Tourist Adviser Relationship Specialty Start Date End Date Theresa Capps DO [address] [place] [address] PCP - General Family Medicine 05/21/24 documented as of this encounter
--- OUTSIDE RECORDS SUMMARY | 2024-12-31 05:14 | External Medical Summary | Summary of Care ---
Author Name Unknown Organization [facility] Address [address] [place] [address] Phone [phone] Care Team Providers Care Director Of Cath Lab Name Role Phone Theresa Capps DO Primary Care Provider [phone] Encounter Details Date Type Department Care Team (Late st Contact Info) Description 10/24/2024 Telephone Gynecology/Obstetrics [facility] [address] [facility] [place] [address] BackerKimberly CRNP [address] [facility] [place] [address] Allergies No known active allergiesdocumented as of this encounter (statuses as of 10/24/2024) Medications Ventolin HFA 108 (90 Base) MCG/ACT Inhalation Aerosol SolutionIndicati ons:Acute cough Inhale 2 Puffs by mouth every 4 hours as needed for Wheezing. 8 g 1 05/21/2024 Active Complete Oral Capsule Therapy Pack Take by mouth. Active documented as of this encounter (statuses as of 10/24/2024) Active Problems Problem Noted Date Diagnosed Date Normal 07/09/2024 Maternal asthma complicating Overview (07/09/2024): Exercise induced, rare inhaler use Other allergic rhinitis 05/06/2005 Overview (07/05/2017): ICD-10 update of inactive term Ocular migraine Exercise-induced asthma Estimated Date of Delivery Comme nts Yes 02/03/2025 Based on last me nstrual period of 04/29/2024 documented as of this encounter (statuses as of 10/24/2024) Immunizations Name Administration Dates Next Due HPV [...] money to get more. Never true 09/21/2024 Philip Depression Scale Answer Date Recorded [place] Depression Scale Total 9 07/09/2024 The thought [...] Telephone Encounter - Tracey Goldman RN - 10/24/2024 2:04 PM EST Patient called in at 25w3d . Patient reports upper abd pain x a couple weeks ago that comesand goes, but seems to be occurring more frequently than when it originally began. Denies severe pain/constant pain. Reports regular Bms. + acid reflux. + headaches at times. Patient reports pain is positional, when she moves certain ways or sits certain ways the pain is more obvious. Has not triedany tylenol. Drinks 60 oz of water each day. + FM, no bleeding, Leaking or contractions. Advised patient to try tylenol when she has the pain or SOSA, and increase fluid intake, try to drink 120 oz perday. Advised if she does not have improvement with these comfort measures to call back, call back sooner with any worsening or new symptoms. She verbalized understanding. documented in this encounter Plan of Treatment Upcoming Encounters Date Type Department Care Team (Late st Contact Info) Description 11/02/2024 8:20 AM EST Laboratory Laboratory, [facility] [address] [place] [phone] [facility] [address] [place] [address] 11/02/2024 8:30 AM EST Office Visit Gynecology/Obstetrics [facility] [address] [place] [address] Trista Mitchell CRNP [address] [place] [address] Health Maintenance Due Date Last Done Comments Pneumococcal Vaccine: Pediatrics (0 to 5 Years) and At-Risk Patients (6 to 18 Years and 19+ Years) (1 of 2 - PCV) 01/08/2012 Depression Screening 06/06/2020 06/06/2019 HPV/Co-Test 2023 COVID-19 Vaccine ( - 2023- season) 2024 Influenza Vaccine (FLU shot) (#1) [...] HPV (Gardasil) Vaccine Completed , 05/22/2008, 03/12/2008 documented as of this encounter Goals Goal Patient Goal Type Associated Problems Recent Progress Patient-Stated? Author Reminders Care Plan OB Reminders No Gilt, Provider documented as of this encounter Medical Devices Not on filedocumented as of this encounter Additional Health Concerns Active Problems Noted Date Diagnosed Date OB Reminders 07/12/2024 documented as of this encounter Care Teams Director Of Cath Lab Relationship Specialty Start Date End Date Theresa Capps DO [address] [place] [address] PCP - General Family Medicine 05/21/24 documented as of this encounter
--- OUTSIDE RECORDS SUMMARY | 2024-12-31 05:14 | External Medical Summary ---
Author Name Unknown Address Unknown Organization K01:[facility] - [address] [place] [address] Laboratory Report Ordering Provider Test Date Status ELISEBACKER 11/02/2024 09:12:05 Final Observation Date Value Abnormality Reference (Units ) Status WBC, Total 11/02/2024 09:12:05 9.84 4.00-10.8 0 (K/uL) Final RBC 11/02/2024 09:12:05 3.88 3.85-5.15 (M/uL) Final Hemoglobin 11/02/2024 09:12:05 12.4 12.0-15.3 (g/dL) Final Anemia reflex testing trigge rs on a HGB < 12.0 for Females and HGB < 13.0 for Males in accordance with the WHO Anemia Guidelines
Anemia reflex testing triggers on a HGB < 12.0 for Females and HGB < 13.0 for Males in accordance with the WHO Anemia Guidelines HCT 11/02/2024 09:12:05 37.2 36.0-45.2 (%) Final MCV 11/02/2024 09:12:05 95.9 81.5-97.5 (fL) Final MCH 11/02/2024 09:12:05 32.0 27.0-34.0 (pg) Final MCHC 11/02/2024 09:12:05 33.3 32.0-36.0 (g/dL) Final RDW 11/02/2024 09:12:05 13.2 11.5-15.5 (%) Final Platelets 11/02/2024 09:12:05 217 140-400 (K /uL) Final MPV 11/02/2024 09:12:05 9.4 6.6-11.1 ( fL) Final Nucleated erythrocytes/100 leukocytes [Ratio] in Blood by Automated count 11/02/2024 09:12:05 0 <=0 (/100 WBCs) Fi [facility] Performing Location [facility] - [address] [facility] [address]
--- OUTSIDE RECORDS SUMMARY | 2024-12-31 05:14 | External Medical Summary | Summary of Care ---
Author Name Unknown Organization [facility] Address [address] [place] [address] Phone [phone] Care Team Providers Care Mink Farmer Name Role Phone Theresa Capps DO Primary Care Provider +[phone] Reason for Visit * Reason Onset Date Comments Advice 12/24/[address] Mancilla er Encounter Details Date Type Department Care Team (Late st Contact Info) Description 12/24/2024 Telephone Gynecology/Obstetrics [facility] [address] [place] [address] Esau Ordonez MD [address] [place] [address] Advice (Rev with Dr. Ordonez) Allergies No [...] money to get more. Never true 09/21/2024 [place] Depression Scale Answer Date Recorded [place] Depression Scale Total 5 12/11/2024 The thought [...] [facility] * Telephone Encounter - Tracey [...] [facility] [address] [place] [address] Backer, VIRGILIO Crane [address] [place] [address] Health Maintenance Due Date Last Done Comments [...] documented as of this encounter Care Teams Mink Farmer Relationship Specialty Start Date End Date Theresa Capps DO [address] [place] [address] PCP - General Family Medicine 05/21/24 documented as of this encounter
--- OUTSIDE RECORDS SUMMARY | 2024-12-31 05:15 | External Medical Summary ---
Author Name Unknown Address Unknown Organization K01:[facility] [address] [facility] [address] Laboratory Report Ordering Provider Test Date Status KELLEY OLIVARES 07/09/2024 10:20:02 Final Observation Date Value Abnormality Reference (Units ) Status HIV 1+2 Ab+HIV1 p24 Ag [Presence] in Serum or Plasma by Immunoassay 07/09/2024 10:20:02 Negative Negative Final Negative HIV-1/2 antigen and antibody screening tset results usually indicate the absence of HIV-1 and HIV-2 infection. However, such negative results do not rule-out acute HIV infection. If acute HIV-1 infection is highly suspected, it is recommended that a specimen be submitted for detection of HIV-1 RNA. Performing Location LABORATORY [facility] [address] [facility] [address] [address] [facility] [address]
--- OUTSIDE RECORDS SUMMARY | 2024-12-31 05:15 | External Medical Summary | Summary of Care ---
Author Name Unknown Organization [facility] Address [address] [place] [address] Phone [phone] Care Team Providers Care Instructional Services Specialist Name Role Phone Theresa Capps DO Primary Care Provider [phone] Reason for Visit * Reason Onset Date Comments Med Request 06/07/2024 Advice 06/07/2024 Encounter Details Date Type Department Care Team (Late st Contact Info) Description 06/07/2024 Telephone [facility] [address] [facility] [address] Theresa Capps DO [address] [place] [address] Med Request; Advice Allergies No known active allergiesdocumented as of this encounter (statuses as of 07/12/2024) Medications Medication Sig Dispensed Refills Start Date End Date Status Ventolin HFA 108 (90 Base) MCG/ACT Inhalation Aerosol SolutionIndicati ons:Acute cough Inhale 2 Puffs by mouth every 4 hours as needed for Wheezing. 8 g 1 4 Active Dicyclomine HCl 10 MG Oral Capsule (Bentyl)Indicati ons:Bloating Take 1 Capsule by mouth 4 times a day as needed for Cramping. For abdominal pain 120 Capsule 1 3 06/19/20 24 Discontinued Omeprazole 20 MG Oral Capsule Delayed Release (PriLOSEC)Indica tions:Bloating Take 1 Capsule by mouth in the morning. 1 hour before the first meal of the day. 90 Capsule 3 06/19/20 24 Discontinued predniSONE 10 MG Oral Tablet (Deltasone)Indic ations:Acute cough Take 5 tabs for 2 days, 4 tabs for 2 days, 3 tabs for 2 days, 2 tabs for 2 days 1 tab for 2 days 30 Tablet 4 06/18/20 24 Discontinued(Med ication List Clean Up) Amoxicillin-Pot Clavulanate 875-125 MG Oral Tablet (Augmentin)Indic ations:Acute cough Take 1 Tablet by mouth in the morning and 1 Tablet before bedtime. Do all this for 10 days. 20 Tablet 4 07/09/20 24 Discontinued(Med ication List Clean Up) Benzonatate 100 MG Oral CapsuleIndicatio ns:Acute cough Take 2 Capsules by mouth 3 times a day as needed for Cough. 30 Capsule 1 4 06/18/20 24 Discontinued(Med ication List Clean Up) Azithromycin 250 MG Oral Tablet (Zithromax Z-Adrian)Indication s:Pneumonia of right lower lobe due to infectious organism Take two tablets by mouth on first day, then 1 tablet daily until gone 6 Tablet 4 06/18/20 24 Discontinued(Med ication List Clean Up) documented as of this encounter (statuses as of 07/12/2024) Active Problems Problem Noted Date Diagnosed Date Normal 07/09/2024 Maternal asthma complicating 4 Overview: Exercise induced, rare inhaler use Other allergic rhinitis 05/06/2005 Overview: ICD-10 update of inactive term Ocular migraine Exercise-induced asthma documented as of this encounter (statuses as of 07/12/2024) Immunizations Name Administration Dates Next Due HPV [...] Tobacco: Never Alcohol Use Standard Drinks/Week Comments Yes 0 (1 standard drink = 0.6 oz pur e alcohol) social PHQ-2 Answer Date Recorded PHQ-2 Score 0 06/06/2019 Hunger Vital Sign Answer Date Recorded Within the past 12 months, y ou worried that your food would run out before you got the money to buy more. Never true 06/13/20 24 Within the past 12 months, t he food you bought just didn't last and you didn't have money to get more. Never true 06/13/2024 Childcare Answer Date Recorded Do you feel overwhelmed with taking care of a child, family member or friend? No 06/13/2024 Does your family need help f inding childcare? (Household - for ages 0-17 years) Not on file 06/13/2024 Clothing Answer Date Recorded Have you been unable to get clothing when it was really needed? No 06/13/2024 Is your family able to get c lothes or diapers when needed? (Household - for ages 0-17 years) Not on file 06/13/2024 Personal Safety Answer Date Recorded Do you feel unsafe or have concerns for your saf ety? No 06/13/2024 Do you have concerns for you r family's safety? (Household - for ages 0-17 years) Not on file 06/13/2024 Utilities Answer Date Recorded Do you have trouble paying y our heating, water, or electric bill? No 06/13/2024 Is your family able to pay t he heat, water, or electric bill? (Household - for ages 0-17 years) Not on file 06/13/2024 Does your family have access to good internet? (Household - for ages 0-17 years) Not on file 06/13/2024 Employment Status Answer Date Recorded Are you unemployed or without regular income? No 06/13/2024 Does the household have a re gular source of income? (Household - for ages 0-17 years) Not on file 06/13/2024 Social Connections Answer Date Recorded How often do you feel lonely or isolated from th ose around you? Never 06/13/2024 Financial Resource Strain Answer Date R ecorded Do you have any trouble payi ng for your medications, or do you think you might in the future? No 06/13/2024 Does your family have troubl e paying for medicine? (Household - for ages 0-17 years) Not on file 06/13/2024 Transportation Needs Answer Date Record ed Do you have trouble getting a ride to medical visits or work? (Adult - for ages 18 years and over) Not on file 06/13/2024 Does your family have a hard time getting a ride to doctors visits? (Household - for ages 0-17 years) Not on file 06/13/2024 Has lack of transportation k ept you from medical appointments, meetings, work, or from getting things needed for daily living? Check all that apply. No 06/13/2024 Do you (or your family) have trouble finding or paying for a ride (transportation)? (Household - for ages 0-17 years) Not on file 06/13/2024 Housing Stability Answer Date Recorded Do you currently live in a s helter or have no steady place to sleep at night? No 06/13/2024 Do you think you are at risk of becoming homeless? (Adult - for ages 18 years and over) Not on file 06/13/2024 Does your family worry about paying for your home or becoming homeless? (Household - for ages 0-17 years) Not on file 1 Are you homeless or worried that you might be in the future? No 06/13/2024 Are you (or your family) unique eless or worried that you might be in the future? (Household - for ages 0-17 years) Not on file Food Insecurity Answer Date Recorded Do you need food for this week? No 06/13/2024 Are you able to get enough f ood for your family? (Household - for ages 0-17 years) Not on file 06/13/2024 Does your family need food t his week? (Household - for ages 0-17 years) Not on file 06/13/2024 Do you always have enough fo od for your family? (Household - for ages 0-17 years) Not on file 06/13/2024 Sex and Gender Information Value Date Recorded Sex Assigned at Female 10/01/2022 8:39 PM EST Gender Identity Female 10/01/2022 8:39 PM EST Sexual Orientation Straight 10/01/2022 8: 39 PM EST Job Start Date Occupation Industry Not on file Not on file Not on file documented as of this encounter Miscellaneous Notes * Telephone Encounter - Prisca Joyce LPN - 06/08/2024 12:31 PM EDT See reply form pt * Telephone Encounter - Yelena Moore CRNP - 06/08/2024 11:19 AM EDT Thank you - I sent her a myG with information but if not read please call. She can get to the PDF link I sent by googling "a guide to help prepare for your special delivery [facility]" * Telephone Encounter - Kaylin Brown LPN - 06/08/2024 10:56 AM EDT Pt is returning phone call and reports that she took both abx as prescribed and finished both. Took steroid as directed as well. States that she still has mucous in the back of her throat and it feels harder to breath when laying on her right side and when laying on her right side, it induces coughing. Still has a slight cough, regularly. Is leaving for a trip tomorrow morning and is asking if she should take anything else and for any other recommendations. Will not have time to come in for an acute visit. Please advise. * Telephone Encounter - Ann Nance LPN - 06/08/2024 10:40 AM EDT Attempted to call patient, there was no answer, left voicemail. When patient returns call transfer to dedicated nurse line. * Telephone Encounter - Yelena Moore CRNP - 06/08/2024 10:16 AM EDT She was to take both antibiotics until gone - please clarify which antibiotics she took and for lowlong. I would not restart augmentin now if she hasn't been taking them and come in for acute visit for re-evaluation if still having bothersome symptoms * Telephone Encounter - Mare Patel CPhT - 06/07/2024 1:32 PM EDT Patient calling to ask if she can continue taking Amoxicillin-Pot Clavulanate 875-125 MG Oral Tablet (Augmentin) and prednisone due to cold symptoms not being cleared up , patient also stated she recently found out she is please advise Thank you, Mare Patel Quencher Operator II [facility] ([facility]) (formerly Telepharmacy) 06/07/2024 1:34 PM documented in this encounter Plan of Treatment Upcoming Encounters Date Type Department Care Team (Late st Contact Info) Description 08/10/2024 11:45 AM EST [facility] [address] [place] [address] BackerKimberly CRNP [address] [place] [address] Health Maintenance Due Date Last Done Comments Pneumococcal Vaccine: Pediatrics (0 to 5 Years) and At-Risk Patients (6 to 64 Years) (1 of 2 - PCV) 1999 Depression Screening 06/06/2020 06/06/2019 HPV/Co-Test 2023 COVID-19 [...] 05/22/2008, 03/12/2008 documented as of this encounter Medical Devices Not on filedocumented as of this encounter Care Teams Instructional Services Specialist Relationship Specialty Start Date End Date Theresa Capps DO [address] [place] [address] PCP - General Family Medicine 05/21/24 documented as of this encounter
--- OUTSIDE RECORDS SUMMARY | 2024-12-31 05:15 | External Medical Summary ---
Author Name Unknown Address Unknown Organization : Laboratory Report Ordering Provider Test Date Status KELLEY OLIVARES 07/09/2024 10:20:02 Final Observation Date Value Abnormality Reference (Units ) Status NUMBER OF FETUSES? 07/09/2024 10:20:02 1 Final ADVANCED MATERNAL AGE? 07/09/2024 10:20:02 NO Final ABNORMAL LYNNETTE? 07/09/2024 10:20:02 NO Final ABNORMAL US? 07/09/2024 10:20:02 NOT GIVEN Final PERSONAL/FAM HISTORY? 07/09/2024 10:20:02 NOT GIVEN Final INTERPRETATION 07/09/2024 10:20:02 SEE BELOW Final This specimen showed an expe cted representation of
chromosome 21, 18, and 13 material. Results were
not analyzed or reported for microdeletions. See
'Limitations' below. TRISOMY 21 (T21) 07/09/2024 10:20:02 Negative Final TRISOMY 18 (T18) 07/09/2024 10:20:02 Negative Final TRISOMY 13 (T13) 07/09/2024 10:20:02 Negative Final Y CHROMOSOME 07/09/2024 10:20:02 Not detected Final Y CHR. INTERPRETATION 07/09/2024 10:20:02 SEE BELOW Final Consistent with a female fet us. SEX CHROMOSOME 07/09/2024 10:20:02 No aneuploidy Final SEX CHROMOSOME INTERP 07/09/2024 10:20:02 SEE BELOW Final No apparent abnormality was detected. See
'Limitations' below. MICRODELETION 07/09/2024 10:20:02 Opted Out Final MICRODELETION INTERP 07/09/2024 10:20:02 SEE BELOW Final Results were not analyzed or reported for
microdeletions. GESTATIONAL AGE (IN WEEKS) 07/09/2024 10:20:02 10 Final GESTATIONAL AGE (IN DAYS) 07/09/2024 10:20:02 1 Final FRACTION 07/09/2024 10:20:02 9.29% Final LABORATORY COMMENTS 07/09/2024 10:20:02 SEE BELOW Final Laboratory testing supervise d and results
monitored by Felix Martins, Ph.D., [facility], [facility],
[facility]. LIMITATIONS 07/09/2024 10:20:02 SEE BELOW Final QNatal(R) Advanced is a cell -free DNA screening
test that screens for increased risk of certain
chromosomal abnormalities that may cause
defects, including Trisomy 21 (Down
syndrome), Trisomy 18, Trisomy 13, and certain sex
chromosome abnormalities (i.e., 45,X, 47,XXY,
47,XXX, and 47,XYY), as well as sex. In
addition, if selected as an option, QNatal(R)
Advanced can screen for certain microdeletions
(i.e., 22q, 5p, 1p36, 15q, 11q, 8q, and 4p) that
may cause defects. This test does not assess
the risk of abnormalities such as neural
tube defects or ventral wall defects and should
not be considered in isolation from other clinical
findings and laboratory test results.
QNatal(R) Advanced has been validated in perez
pregnancies for the trisomies and sex chromosome
abnormalities listed above, as well as for
microdeletions, and for the determination of
sex. Sex chromosome aneuploidy analysis is only
performed in perez pregnancies. This screening
test has also been validated in twin pregnancies
for the trisomies listed above and for
microdeletions, but not for the sex chromosome
abnormalities due to limited data. This screening
test has not been validated in higher order
pregnancies (more than two) because limited data
is available. Sex chromosomal aneuploidy results
issued for pregnancies confirmed to be of multiple
gestations are not valid and should be
disregarded.
Microdeletion screening is limited to the
specified microdeletion regions (see
'Methodology'). The Y chromosome is analyzed for
the determination of sex. The sensitivity
and specificity of sex determination
analysis may be less than that of the Trisomy 21,
18, and 13 analysis and this determination can be
confounded by vanishing twin syndrome in
pregnancies that were originally multiple
gestation pregnancies. It should be noted that
QNatal(R) Advanced is a quantitative analysis of
maternal and placental cfDNA. As a result, the
accuracy of screening results may be affected by
the presence of chromosome abnormalities or
microdeletions that are maternal or confined
placental in origin. SPECIFICATIONS 07/09/2024 10:20:02 SEE BELOW Final Sensitivity Specificity
T21 >99.9% >99.9%
T18 >99.9% >99.9%
T13 >99.9% >99.9%
Accuracy
Y >99.9%
Performance of the QNatal Advanced
laboratory-developed test (LDT) has been
determined based on internal analytical
assessment. METHODOLOGY 07/09/2024 10:20:02 SEE BELOW Final Circulating cell-free (cf) D NA was isolated from
plasma followed by detection on a massively
parallel sequencing platform. Bioinformatic
analysis was performed to determine the
representation of chromosomes 21, 18, 13, X and Y
in circulating cell-free DNA. The representation
of sequences from the critical regions involved in
1p36 microdeletion syndrome (1p36),
Page-Hirschhorn syndrome (4p), Cri-du-chat
syndrome (5p), Lupillo-Giedion syndrome (8q),
Sorin syndrome (11q), Prader Willi
syndrome/Angelman syndrome (15q), and DiGeorge
syndrome (22q) is evaluated for the detection of
microdeletions if requested. Performance
characteristics refer to the analytical
performance of this screening test. This screening
test is performed pursuant to a license agreement
with [employer].
QNatal Advanced is a laboratory developed test
that has been developed and validated, pursuant to
the Clinical Laboratory Improvements Amendments of
1988 (CLIA), and as such it has not been reviewed
by FDA.
Test performed by [email or web address]
[address],
[place] [address]

China Painter: Veena Edmondson MD,PHD,ANGELA
Test Reported by [facility],
[email or web address],
[address] [place], [place]
Tee Aparicio M.D., Ph.D., Director of Laboratories
, CLIA [id number] Performing Location
--- OUTSIDE RECORDS SUMMARY | 2024-12-31 05:15 | External Medical Summary ---
Author Name Unknown Address Unknown Organization K01:[facility]ORY [facility] - [address] [place] [address] Laboratory Report Ordering Provider Test Date Status ELISEBACKER 07/09/2024 10:20:02 Final Observation Date Value Abnormality Reference (Units ) Status WBC, Total 07/09/2024 10:20:02 7.47 4.00-10.8 0 (K/uL) Final RBC 07/09/2024 10:20:02 4.35 3.85-5.15 (M/uL) Final Hemoglobin 07/09/2024 10:20:02 13.9 12.0-15.3 (g/dL) Final Anemia reflex testing trigge rs on a HGB < 12.0 for Females and HGB < 13.0 for Males in accordance with the WHO Anemia Guidelines
Anemia reflex testing triggers on a HGB < 12.0 for Females and HGB < 13.0 for Males in accordance with the WHO Anemia Guidelines HCT 07/09/2024 10:20:02 41.8 36.0-45.2 (%) Final MCV 07/09/2024 10:20:02 96.1 81.5-97.5 (fL) Final MCH 07/09/2024 10:20:02 32.0 27.0-34.0 (pg) Final MCHC 07/09/2024 10:20:02 33.3 32.0-36.0 (g/dL) Final RDW 07/09/2024 10:20:02 14.5 11.5-15.5 (%) Final Platelets 07/09/2024 10:20:02 187 140-400 (K /uL) Final MPV 07/09/2024 10:20:02 10.3 6.6-11.1 ( fL) Final Nucleated erythrocytes/100 leukocytes [Ratio] in Blood by Automated count 07/09/2024 10:20:02 0 <=0 (/100 WBCs) Fi nal Performing Location [facility] - [address] [facility] [address]
--- OUTSIDE RECORDS SUMMARY | 2024-12-31 05:15 | External Medical Summary ---
Author Name Unknown Address Unknown Organization K01:LABORATORY [facility] [place] - [address] [place] [address] Laboratory Report Ordering Provider Test Date Status KELLEY OLIVARES 07/09/2024 10:10:48 Final Observation Date Value Abnormality Reference (Units) Status Bacteria identified in Specimen by Culture 07/09/2024 10:10:48 No significant growth Final Test: Culture, Urine, Quanti tative
Specimen Source: Urine, Clean Catch
Specimen Type: Urine
Specimen Date: 07/09/2024 1010
Result Date: 07/10/2024 1154
Result Status: Final result
Resulting Lab: LABORATORY [facility] [place]
[address]
[facility] [address]

CULTURE

No significant growth

null Performing Location LABORATORY [facility] [place] - [address] [facility] [address]
--- OUTSIDE RECORDS SUMMARY | 2024-12-31 05:15 | External Medical Summary | Summary of Care ---
Author Name Unknown Organization [facility] Address [address] [place] [address] Phone [phone] Care Team Providers Care Quality Assurance Monitor Name Role Phone Theresa Capps DO Primary Care Provider [phone] Reason for Visit * Reason Onset Date Comments Order Request 05/28/2024 Encounter Details Date Type Department Care Team (Late st Contact Info) Description 05/28/[address] [facility] [address] [facility] [place] [address] Theresa Capps DO [address] [place] [address] Order Request Allergies No known active allergiesdocumented as of this encounter (statuses as of 08/27/2024) Medications Ventolin HFA 108 (90 Base) MCG/ACT Inhalation Aerosol SolutionIndicati ons:Acute cough Inhale 2 Puffs by mouth every 4 hours as needed for Wheezing. 8 g 1 05/21/20 24 Active Dicyclomine HCl 10 MG Oral Capsule (Bentyl)Indicati ons:Bloating Take 1 Capsule by mouth 4 times a day as needed for Cramping. For abdominal pain 120 Capsule 1 12/02/19 23 024 Discontinued Omeprazole 20 MG Oral Capsule Delayed Release (PriLOSEC)Indica tions:Bloating Take 1 Capsule by mouth in the morning. 1 hour before the first meal of the day. 90 Capsule 12/25/19 23 024 Discontinued Vienva 0.1-20 MG-MCG Oral TabletIndication s:Encounter for surveillance of contraceptive pills TAKE 1 TABLET BY MOUTH ONCE DAILY 84 Tablet 3 11/09/19 24 024 Discontinued predniSONE 10 MG Oral Tablet (Deltasone)Indic ations:Acute cough Take 5 tabs for 2 days, 4 tabs for 2 days, 3 tabs for 2 days, 2 tabs for 2 days 1 tab for 2 days 30 Tablet 05/21/20 24 024 Discontinued(M edication List Clean Up) Amoxicillin-Pot Clavulanate 875-125 MG Oral Tablet (Augmentin)Indic ations:Acute cough Take 1 Tablet by mouth in the morning and 1 Tablet before bedtime. Do all this for 10 days. 20 Tablet 05/21/20 24 024 Discontinued(M edication List Clean Up) Benzonatate 100 MG Oral CapsuleIndicatio ns:Acute cough Take 2 Capsules by mouth 3 times a day as needed for Cough. 30 Capsule 1 05/21/20 24 024 Discontinued(M edication List Clean Up) Azithromycin 250 MG Oral Tablet (Zithromax Z-Adrian)Indication s:Pneumonia of right lower lobe due to infectious organism Take two tablets by mouth on first day, then 1 tablet daily until gone 6 Tablet 05/21/20 24 024 Discontinued(M edication List Clean Up) documented as of this encounter (statuses as of 08/27/2024) Active Problems Problem Noted Date Diagnosed Date Normal 07/09/2024 Maternal asthma complicating Overview (07/09/2024): Exercise induced, rare inhaler use Other allergic rhinitis 05/06/2005 Overview (07/05/2017): ICD-10 update of inactive term Ocular migraine Exercise-induced asthma documented as of this encounter (statuses as of 08/27/2024) Immunizations Name Administration Dates Next Due HPV [...] money to get more. Never true 06/13/2024 Rupert Depression Scale Answer Date Recorded Rupert Depression Scale Total 9 07/09/2024 The thought [...] ages 0-17 years) Not on file 06/13/2024 Comments No Sex and Gender Information Value Date Recorded Sex Assigned at Female 10/01/2022 8:39 PM EST Legal Sex Female 7:11 AM EST Gender Identity Female 10/01/2022 8:39 PM EST Sexual Orientation Straight 10/01/2022 8: 39 PM EST Occupation Industry Job Start Date Job End Date student Not on file Not on file Not on file documented as of this encounter Miscellaneous Notes * Telephone Encounter - Theresa Capps DO - 05/30/2024 1:46 PM EDT ordered * Telephone Encounter - Prisca Joyce LPN - 05/29/2024 9:29 AM EDT Sent My G asking if she still wants las for , as the urine was Negative. * Telephone Encounter - Rowena Mojica OSA - 05/28/2024 3:40 PM EDT An order was requested for this patient. Name of Requesting Provider: Dr Capps Order Requested: Labs Diagnosis/Reason for Request: Poss What location AND department does the patient wish to have their order completed at? Fax Number, if applicable: If the caller is not a current patient, please advise the patient to call their current PCP to havethe order's prior to being seen in our office. The patient was informed that our providers would not order anything (medication, labs, etc.) prior to being seen. documented in this encounter Plan of Treatment Upcoming Encounters Date Type Department Care Team ([facility] st Contact Info) Description 09/07/2024 11:30 AM EST Office Visit Gynecology/Obstetrics [facility] [address] [place] [address] BackerKimberly CRNP [address] [place] [address] Scheduled Orders Name Type Priority Associated Diagnoses Orde r Schedule BETA-HCG, QUANTITATIVE Lab Routine Missed period Expected: 05/30/2024, Expires: 08/29/2024 Health Maintenance Due Date Last Done Comments [...] as of this encounter Visit Diagnoses Diagnosis Missed period- Primary Irregular menstrual cycle documented in this encounter Care Teams Quality Assurance Monitor Relationship Specialty Start Date End Date Theresa Capps DO [address] [place] [address] PCP - General Family Medicine 05/21/24 documented as of this encounter
--- OUTSIDE RECORDS SUMMARY | 2024-12-31 05:15 | External Medical Summary ---
Author Name Unknown Address Unknown Organization K01:[facility] [place] [address] [facility] [address] Laboratory Report Ordering Provider Test Date Status ELISEBACKER 07/09/2024 10:10:48 Final Observation Date Value Abnormality Reference (Units ) Status Bacterial vaginosis [Interpretation] in Vaginal fluid Qualitative 07/09/2024 10:10:48 Negative Negative Final Negative for Bacterial Vagin osis. Correlate results with other clinical findings. Pamela sp DNA [Presence] in Vaginal fluid by Probe 07/09/2024 10:10:48 Negative Negative Final No Pamela species group RNA detected. Correlate results with other clinical findings. Pamela glabrata RNA [Presen ce] in Vaginal fluid by ANUJ with probe detection 07/09/2024 10:10:48 Negative Negative Final No Pamela glabrata RNA dete cted. Correlate results with other clinical findings. Trichomonas vaginalis DNA [P resence] in Vaginal fluid by Probe 07/09/2024 10:10:48 Negative Negative Final No Trichomonas vaginalis RNA detected. Performing Location [facility] [place] [address] [facility] [address]
--- OUTSIDE RECORDS SUMMARY | 2024-12-31 05:15 | External Medical Summary ---
Author Name Unknown Address Unknown Organization [id number]:LABORATORY [facility] [place] - [facility] [place] [address] Laboratory Report Ordering Provider Test Date Status KELLEY OLIVARES 07/09/2024 10:10:48 Final Observation Date Value Abnormality Reference (Units ) Status Chlamydia trachomatis rRNA [Presence] in Specimen by ANUJ with probe detection 07/09/2024 10:10:48 Negative Negative Final No Chlamydia trachomatis det ected by finishing and shipping supervisor-mediated nucleic acid amplification. Neisseria gonorrhoeae rRNA [ Presence] in Specimen by ANUJ with probe detection 07/09/2024 10:10:48 Negative Negative Final No Neisseria gonorrhoeae det ected by finishing and shipping supervisor-mediated nucleic acid amplification. Performing Location LABORATORY [facility] [place] - [address] [place] [address]
--- OUTSIDE RECORDS SUMMARY | 2024-12-31 05:15 | External Medical Summary ---
Author Name Unknown Address Unknown Organization [id number]:LABORATORY [facility] [place] - [address] [place] [address] [place] [address] Laboratory Report Ordering Provider Test Date Status KELLEY LOIVARES 07/09/2024 10:20:02 Final Observation Date Value Abnormality Reference (Units ) Status Hep B surface Ag 07/09/2024 10:20:02 Negative Neg ative Final Performing Location LABORATORY [facility] - [address] [place] [address]
--- OUTSIDE RECORDS SUMMARY | 2024-12-31 05:15 | External Medical Summary | Summary of Care ---
Author Name Unknown Organization [facility] Address [address] [place] [address] Phone [phone] Care Team Providers Care Other Sports Official Name Role Phone Theresa Capps DO Primary Care Provider [phone] Reason for Visit * Reason Comments New Visit Encounter Details Date Type Department Care Team (Late st Contact Info) Description 07/09/2024 10:00 AM EDT Office Visit Gynecology/Obstetric s Lukas Salguero [address] [place] [address] BackKimberly harrison CRNP [address] [facility] [place] [address] Normal in first trimester*; Acute vaginitis; Maternal asthma complicating Allergies No known active allergiesdocumented as of this encounter (statuses as of 07/09/2024) Medications Medication Sig Dispensed Refills Start Date End Date Status Ventolin HFA 108 (90 Base) MCG/ACT Inhalation Aerosol SolutionIndications :Acute cough Inhale 2 Puffs by mouth every 4 hours as needed for Wheezing. 8 g 1 05/21/2024 Active Complete Oral Capsule Therapy Pack Take by mouth. Active Amoxicillin-Pot Clavulanate 875-125 MG Oral Tablet (Augmentin)Indicati ons:Acute cough Take 1 Tablet by mouth in the morning and 1 Tablet before bedtime. Do all this for 10 days. 20 Tablet 05/21/2024 07/09/20 24 Discontinu ed(Medicat ion List Clean Up) Clotrimazole 1 % Vaginal CreamIndications:Ca ndidal vulvovaginitis Administer into the vagina at bedtime for 7 days. One applicatorful (appx 5g) per dose 45 g 06/19/2024 07/09/20 24 Discontinu ed(Medicat ion List Clean Up) documented as of this encounter (statuses as of 07/09/2024) Active Problems Problem Noted Date Diagnosed Date Normal 07/09/2024 Maternal asthma complicating Overview: Exercise induced, rare inhaler use Other allergic rhinitis 05/06/2005 Overview: ICD-10 update of inactive term Ocular migraine Exercise-induced asthma Estimated Date of Delivery Comme nts Yes 02/03/2025 Based on last me nstrual period of 04/29/2024 documented as of this encounter (statuses as of 07/09/2024) Immunizations Name Administration Dates Next Due DTP/HIB (Tetramune) 1993,1993 DTWP - Dipth/Tet/Whole Cell Pertussis 1993 DTaP Dipth/Tet/Acell Pertussis (Infanrix), Peds 01/14/1998,07/02/1994 HPV Vaccine, 4-Valent 01/10/2009,05/22/2008,09/2007 Haemophilius B (HIB), unspecified 03/31/1994, Hepatitis B Vaccine 1993,1993,1992 IPV - Polio Virus Vaccine (Inact) 01/14/1998 MMR - Measles/Mumps/Rubella Vaccine 01/14/1998,0 03/31/1994 Meningococcal Conjugate Vacc ine (Menactra/Menveo) 03/12/2008 OPV - Polio Virus Vaccine (Oral) 07/02/1994,04/1993,1993 PPD 11/26/2015,11/19/2015 Seasonal Influenza Vac., MDV , [...] ages 0-17 years) Not on file 06/13/2024 Estimated Date of Delivery Comme nts Yes [...] on file documented as of this encounter Last Filed Vital Signs Vital Sign Reading Time Taken Comments Blood Pressure 102/64 07/09/2024 9:23 AM EDT Pulse - - Temperature - - Respiratory Rate - - Oxygen Saturation - - Inhaled Oxygen Concentration - - Weight 66.4 kg (146 lb 6.4 oz) 07/09/2024 9:23 A M EDT Height 167.6 cm (5' 6") 07/09/2024 9:23 AM EDT Body Mass Index 23.63 07/09/2024 9:23 AM EDT documented in this encounter Patient Instructions * Patient Instructions* Kimberly Crenshaw CRNP - 07/09/2024 9:34 AM EDT To prevent migraines, take daily ([id number]-quo-[id number]): - 400 mg magnesium - 200 mg Co-Q-10 - 400 mg riboflavin (vitamin B2) documented in this encounter Progress Notes * Kimberly Crenshaw CRNP - 07/09/2024 10:02 AM EDT CC: NOB HPI: Rebecca Ronquillo is a 29 year old female here for initial OB exam. ALISON 02/03/25 by LMP and dating u/s. She is taking vitamins. Reviewed PMH, social hx, family hx, surgical hx, ob hx with patient. Pertinent positives: exercise-induced asthma, has an inhaler for prn use. Prior complications: n/a Current symptoms: nausea, mild cramping. No bleeding. Hx migraines, has been having more HAs. Recently treated for yeast infection; feels like symptoms of itching have returned. Reviewed current medications with patient. Last pap smear 09/2022 NILM [place] Depression Scale: [place] Depression Scale Total: 9 [place] suicide question and score: Score of 3 = Yes, quite often. Score of 2 = Sometimes. Score of 1 = Hardly ever The thought of harming myself has occurred to me.: 0 OB History Para Term AB Living 1 0 0 0 0 0 SAB IAB Ectopic Multiple Live Births 0 0 0 0 # Outcome Date GA Lbr Gold/2nd Weight Sex Type Anes PTL Lv 1 Current Past Medical History: Diagnosis Date Exercise-induced asthma Ocular migraine Varicella without complication 09/12/1995 Social History Socioeconomic History Marital status: Tobacco Use Smoking status: Never Smokeless tobacco: Never Substance and Sexual Activity Alcohol use: Not Currently Comment: social Drug use: No Sexual activity: Yes Partners: Male Social Determinants of Health Financial Resource Strain: Low Risk (06/13/2024) Financial Resource Strain Do you have any trouble paying for your medications, or do you think you might in the future? (Adult - for ages 18 years and over): No Food Insecurity: No Food Insecurity (06/13/2024) Food Insecurity Do you need food for this week? (Adult - for ages 18 years and over): No Transportation Needs: No Transportation Needs (06/13/2024) Transportation Needs Has lack of transportation kept you from medical appointments, meetings, work, or from getting things needed for daily living? Check all that apply. (Adult - for ages 18 years and over): No Social Connections: Socially Integrated (06/13/2024) Social Connections How often do you feel lonely or isolated from those around you? (Adult - for ages 18 years and over): Never Housing Stability: Low Risk (06/13/2024) Housing Stability Do you currently live in a fci or have no steady place to sleep at night? (Adult - for ages 18 years and over): No Are you homeless or worried that you might be in the future? (Adult - for ages 18 years and over): No Past Surgical History: Procedure Laterality Date NONE Current Outpatient Medications Medication Sig Dispense Refill Ventolin HFA 108 (90 Base) MCG/ACT Inhalation Aerosol Solution Inhale 2 Puffs by mouth every 4 hours as needed for Wheezing. 8 g 1 Complete Oral Capsule Therapy Pack Take by mouth. No current facility-administered medications for this visit. Review of patient's allergies indicates: No Known Allergies No family history on file. Denies family history of genetic conditions in patient's and FOB's families. ROS: General: no fevers, chills CV: no chest pain, SOB GI: no constipation, diarrhea, + nausea Breast: no masses, nipple discharge, + tenderness : no vaginal bleeding, unusual vaginal discharge, dysuria Psychological: no anxiety, depression, SI/HI PHYSICAL EXAM: please see physical Shuttlecock Feather Trimmer Documentation Provider requested regulatory compliance officer. Name of regulatory compliance officer: Hanna ASSESSMENT/PLAN: Normal in first trimester (Primary) - QNATAL ADVANCED ([facility]); Future; Expected date: 07/09/2024 - CULTURE, URINE, QUANTITATIVE - TYPE AND SCREEN; Future; Expected date: 07/09/2024 - RUBELLA IGG ANTIBODY; Future; Expected date: 07/09/2024 - HEPATITIS B SURFACE ANTIGEN; Future; Expected date: 07/09/2024 - HIV ANTIGEN & ANTIBODY SCREEN W/ CONFIRMATION; Future; Expected date: 07/09/2024 - CHLAMYDIA TRACHOMATIS AND NEISSERIA GONORRHOEAE, AMPLIFIED PROBE - CBC WITH WBC DIFFERENTIAL AND ANEMIA REFLEX WORKUP; Future; Expected date: 07/09/2024 - HEPATITIS C ANTIBODY SCREEN WITH PROGRESSION TO HEPATITIS C RNA QUANTITATIVE; Future; Expected date: 07/09/2024 - SYPHILIS ANTIBODY SCREEN WITH REFLEX TO RPR; Future; Expected date: 07/09/2024 Acute vaginitis - VAGINOSIS PANEL, PCR; Future; Expected date: 07/09/2024 Maternal asthma complicating - ok to use inhaler in . Advise office or PCP if symptoms worsen. Follow Up: Return in about 4 weeks (around 08/06/2024) for rpn. | For: rpn | Check-out note: Labs today - Discussed timing of routine OB care and OB call coverage. Provided with OB triage phone number; advised to use patient portal for non-emergent questions only. - Offered/declined flu vaccine - Offered genetic screening and explained that screening does not provide a definitive diagnosis. Patient is interested, testing ordered. Aware that results will be in the patient portal in about 2 weeks, including report of sex. - Counseled on OTC measures to help alleviate nausea and advised to call if these are ineffective - Recommended daily vitamin. - Discussed labs as ordered and instructed patient to present to lab following appointment. - RTO in 4 weeks for MADAY TAYLOR with concern VIRGILIO [place] documented in this encounter Plan of Treatment Upcoming Encounters Date Type Department Care Team (Late st Contact Info) Description 07/09/2024 10:40 AM EDT Laboratory Laboratory, [facility] [address] [facility] [place] [phone] [facility] [address] [facility] [place] [address] Arrived Pending Results Name Type Priority Associated Diagnoses Date /Time CULTURE, URINE, QUANTITATIVE Lab Routine Normal in first trimester 07/09/2024 10:10 AM EDT CHLAMYDIA TRACHOMATIS AND NEISSERIA GONORRHOEAE, AMPLIFIED PROBE Lab Routine Normal in first trimester 07/09/2024 10:10 AM EDT VAGINOSIS PANEL, PCR Lab Routine Acute vaginitis 07/09/2024 10:10 AM EDT Scheduled Orders Name Type Priority Associated Diagnoses Orde r Schedule QNATAL ADVANCED ([facility]) Lab Routine Normal in first trimester Expected: 07/09/2024, Expires: 07/09/2025 TYPE AND SCREEN Lab Routine Normal in first trimester Expected: 07/09/2024 (Approximate), Expires: 08/09/2025 RUBELLA IGG ANTIBODY Lab Routine Normal in first trimester Expected: 07/09/2024 (Approximate), Expires: 07/09/2025 HEPATITIS B SURFACE ANTIGEN Lab Routine Normal in first trimester Expected: 07/09/2024 (Approximate), Expires: 07/09/2025 HIV ANTIGEN & ANTIBODY SCREEN W/ CONFIRMATION Lab Routine Normal in first trimester Expected: 07/09/2024, Expires: 07/09/2025 CBC WITH WBC DIFFERENTIAL AND ANEMIA REFLEX WORKUP Lab Routine Normal in first trimester Expected: 07/09/2024, Expires: 07/09/2025 HEPATITIS C ANTIBODY SCREEN WITH PROGRESSION TO HEPATITIS C RNA QUANTITATIVE Lab Routine Normal in first trimester Expected: 07/09/2024, Expires: 07/09/2025 SYPHILIS ANTIBODY SCREEN WITH REFLEX TO RPR Lab Routine Normal in first trimester Expected: 07/09/2024, Expires: 07/09/2025 VAGINOSIS PANEL, PCR Lab Routine Acute vaginitis Expected: 07/09/2024, Expires: 07/09/2025 Health Maintenance Due Date Last Done Comments Hepatitis C Screening 2011 Depression Screening 06/06/2020 06/06/2019 HPV/Co-Test 2023 COVID-19 Vaccine ( season) 2024 Influenza Vaccine (FLU shot) (#1) 2024 07/22/2010, 07/10/2003 Cervical Cancer Screening 10/04/2025 Pap Smear 10/04/2025 10/04/2022, 05/14, 04/25/2015, Additional history exists DTap/Tdap Vaccines (8 - Td or Tdap) 07/10/2028 07/10/2018, 09/27/2006, 01/14/1998, Additional history exists Hepatitis B Vaccine Completed 1993, 1993, 1993 MENINGOCOCCAL (MENACTRA/MENVEO) Aged Out 03/12/2008 No longer eligible based on patient's age to complete this topic HPV (Gardasil) Vaccine Completed 9, 05/22/2008, 03/12/2008 Pneumococcal Vaccine: Pediatrics (0 to 5 Years) and At-Risk Patients (6 to 64 Years) Aged Out No longer eligible based on patient's age to complete this topic documented as of this encounter Medical Devices Not on filedocumented as of this encounter Visit Diagnoses Diagnosis Normal in first trimester- Primary Acute vaginitis Vaginitis and vulvovaginitis, unspecified Maternal asthma complicating Other current maternal conditions classifiable elsewhere, complicating , childbirth, or the puerperium, unspecified as to episode of care documented in this encounter Care Teams Other Sports Official Relationship Specialty Start Date End Date Theresa Capps DO [address] [place] [address] PCP - General Family Medicine 05/21/24 documented as of this encounter
--- OUTSIDE RECORDS SUMMARY | 2024-12-31 05:15 | External Medical Summary | Summary of Care ---
Author Name Unknown Organization [facility] Address [address] [place] [address] Phone [phone] Care Team Providers Care Documentation Liaison Name Role Phone Theresa Capps DO Primary Care Provider [phone] Reason for Visit * Reason Comments New Visit Encounter Details Date Type Department Care Team (Late st Contact Info) Description 07/09/2024 10:00 AM EDT Office Visit Gynecology/Obstetric s Lukas Salguero [address] [place] [address] BackKimberly harrison CRNP [address] [place] [address] Normal in first trimester*; Acute vaginitis; Maternal [...] AM EDT To prevent migraines, take daily (huqm-vbx-tisxkub): - 400 mg magnesium - 200 mg [...] with patient. Last pap smear 09/2022 NILM [place] Depression Scale: [place] Depression Scale Total: 9 [place] suicide question and score: Score of 3 [...] Stability Do you currently live in a fpc or have no steady place to sleep [...] depression, SI/HI PHYSICAL EXAM: please see physical Dry Pan Charger Documentation Provider requested co founder and chairman. Name of co founder and chairman: Hanna ASSESSMENT/PLAN: Normal in first trimester (Primary) [...] Description 07/09/2024 10:40 AM EDT Laboratory Laboratory, [facility] [address] [facility] [place] [phone] [facility] [address] [facility] [place] [address] Normal in first trimester Pending Results Name Type Priority Associated Diagnoses Date /Time QNATAL ADVANCED ([facility]) Lab Routine Normal in first trimester 07/09/2024 10:20 AM EDT CULTURE, URINE, QUANTITATIVE Lab Routine Normal in first trimester 07/09/2024 10:10 AM EDT TYPE AND SCREEN Lab Routine Normal in first trimester 07/09/2024 10:20 AM EDT RUBELLA IGG ANTIBODY Lab Routine Normal in first trimester 07/09/2024 10:20 AM EDT HEPATITIS B SURFACE ANTIGEN Lab Routine Normal in first trimester 07/09/2024 10:20 AM EDT HIV ANTIGEN & ANTIBODY SCREEN W/ CONFIRMATION Lab Routine Normal in first trimester 07/09/2024 10:20 AM EDT CHLAMYDIA TRACHOMATIS AND NEISSERIA GONORRHOEAE, AMPLIFIED PROBE Lab Routine Normal in first trimester 07/09/2024 10:10 AM EDT CBC WITH WBC DIFFERENTIAL AND ANEMIA REFLEX WORKUP Lab Routine Normal in first trimester 07/09/2024 10:20 AM EDT HEPATITIS C ANTIBODY SCREEN WITH PROGRESSION TO HEPATITIS C RNA QUANTITATIVE Lab Routine Normal in first trimester 07/09/2024 10:20 AM EDT SYPHILIS ANTIBODY SCREEN WITH REFLEX TO RPR Lab Routine Normal in first trimester 07/09/2024 10:20 AM EDT VAGINOSIS PANEL, PCR Lab Routine [...] puerperium, unspecified as to episode of care Normal in first trimester documented in this encounter Care Teams Documentation Liaison Relationship Specialty Start Date End Date Theresa Capps DO [address] [place] [address] PCP - General Family Medicine 05/21/24 documented as of this encounter
--- OUTSIDE RECORDS SUMMARY | 2024-12-31 05:15 | External Medical Summary | Summary of Care ---
Author Name Unknown Organization [facility] Address [address] [place] [address] Phone [phone] Care Team Providers Care Home Care Consultant Name Role Phone Theresa Capps DO Primary Care Provider [phone] Reason for Visit * Reason Comments Return Visit Encounter Details Date Type Department Care Team (Late st Contact Info) Description 08/10/2024 11:45 AM EST Office Visit Gynecology/Obstetric s Lukas Salguero [address] [place] [address] BackKimberly harrison CRNP [address] [place] [address] Normal in second trimester*; Maternal asthma complicating Allergies No known active allergiesdocumented as of this encounter (statuses as of 08/10/2024) Medications Ventolin HFA 108 (90 Base) MCG/ACT Inhalation Aerosol SolutionIndicati ons:Acute cough Inhale 2 Puffs by mouth every 4 hours as needed for Wheezing. 8 g 1 05/21/2024 Active Complete Oral Capsule Therapy Pack Take by mouth. Active documented as of this encounter (statuses as of 08/10/2024) Active Problems Problem Noted Date Diagnosed Date Normal 07/09/2024 Maternal asthma complicating Overview (07/09/2024): Exercise induced, rare inhaler use Other allergic rhinitis 05/06/2005 Overview (07/05/2017): ICD-10 update of inactive term Ocular migraine Exercise-induced asthma Estimated Date of Delivery Comme nts Yes 02/03/2025 Based on last me nstrual period of 04/29/2024 documented as of this encounter (statuses as of 08/10/2024) Immunizations Name Administration Dates Next Due HPV [...] money to get more. Never true 06/13/2024 [place] Depression Scale Answer Date Recorded [place] Depression Scale Total 9 07/09/2024 The thought [...] 06/13/2024 Does the household have a re lar [...] Sign Reading Time Taken Comments Blood Pressure 106/68 08/10/2024 11:43 AM EST Pulse - - Temperature - - Respiratory Rate - - Oxygen Saturation - - Inhaled Oxygen Concentration - - Weight 70.6 kg (155 lb 9.6 oz) 08/10/2024 11:43 AM EST Height - - Body Mass Index 25.11 07/09/2024 9:23 AM EDT documented in this encounter Progress Notes * Kimberly Crenshaw CRNP - 08/10/2024 11:48 AM EST 14w5d Doing well. Occasional mild cramping. Denies bleeding. Low risk Qnatal, having a girl. Return in 4 weeks. VIRGILIO [place] * Brionna Gregg CMA - 08/10/2024 11:43 AM EST 14w5d Denies any concerns documented in this encounter Plan of Treatment Upcoming Encounters Date Type Department Care Team (Late st Contact Info) Description 09/07/2024 11:30 AM EST Office Visit Gynecology/Obstetrics [facility] [address] [place] [address] Kimberly Crenshaw CRNP [address] [place] [address] Health Maintenance Due Date Last Done Comments [...] documented as of this encounter Care Teams Home Care Consultant Relationship Specialty Start Date End Date Theresa Capps DO [address] [place] [address] PCP - General Family Medicine 05/21/24 documented as of this encounter
--- OUTSIDE RECORDS SUMMARY | 2024-12-31 05:15 | External Medical Summary ---
Author Name Unknown Address Unknown Organization K01:LABORATORY [facility] - [address] [place] [address] Laboratory Report Ordering Provider Test Date Status KELLEY OLIVARES 07/09/2024 10:20:02 Final Observation Date Value Abnormality Reference (Units ) Status Hep C Ab 07/09/2024 10:20:02 Negative Negative Final Further HCV quantitative ramon ting not performed per protocol. Performing Location LABORATORY [facility] - [address] [place] [address]
--- OUTSIDE RECORDS SUMMARY | 2024-12-31 05:15 | External Medical Summary | Summary of Care ---
Author Name Unknown Organization [facility] Address [address] [place] [address] Phone [phone] Care Team Providers Care Coagulating Drying Supervisor Name Role Phone Theresa Capps DO Primary Care Provider +1 [phone] Reason for Visit * Reason Comments Outpatient Testing Encounter Details Date Type Department Care Team (Late st Contact Info) Description 07/09/2024 10:40 AM EDT Laboratory Laboratory, [facility] [address] [place] [id number] [facility] [address] [place] [address] Normal in first trimester Allergies No known active allergiesdocumented as of this encounter (statuses as of 07/09/2024) Medications Medication Sig Dispensed Refills Start Date End Date Status Ventolin HFA 108 (90 Base) MCG/ACT Inhalation Aerosol SolutionIndications:Ac meghna cough Inhale 2 Puffs by mouth every [...] 07/09/2024) Immunizations Name Administration Dates Next Due HPV [...] on file documented as of this encounter Plan of Treatment Pending Results Name Type Priority Associated Diagnoses Date /Time QNATAL ADVANCED ([facility]) Lab Routine Normal in first trimester 07/09/2024 10:20 AM EDT TYPE AND SCREEN Lab Routine Normal in first trimester 07/09/2024 10:20 AM EDT RUBELLA IGG ANTIBODY Lab Routine Normal in first trimester 07/09/2024 10:20 AM EDT HEPATITIS B SURFACE ANTIGEN Lab Routine Normal in first trimester 07/09/2024 10:20 AM EDT HIV ANTIGEN & ANTIBODY SCREEN W/ CONFIRMATION Lab Routine Normal in first trimester 07/09/2024 10:20 AM EDT CBC WITH WBC DIFFERENTIAL AND ANEMIA REFLEX WORKUP Lab Routine Normal in first trimester 07/09/2024 10:20 AM EDT HEPATITIS C ANTIBODY SCREEN WITH PROGRESSION TO HEPATITIS C RNA QUANTITATIVE Lab Routine Normal in first trimester 07/09/2024 10:20 AM EDT SYPHILIS ANTIBODY SCREEN WITH REFLEX TO RPR Lab Routine Normal in first trimester 07/09/2024 10:20 AM EDT ANEMIA CBC Lab Routine Normal in first trimester 07/09/2024 10:20 AM EDT DIFFERENTIAL, AUTOMATED Lab Routine Normal in first trimester 07/09/2024 10:20 AM EDT ANEMIA REFLEX CHEMISTRY HOLD Lab Routine Normal in first trimester 07/09/2024 10:20 AM EDT HEPATITIS C ANTIBODY Lab Routine Normal in first trimester 07/09/2024 10:20 AM EDT HEPATITIS C RNA ADD ON Lab Routine Normal in first trimester 07/09/2024 10:20 AM EDT SYPHILIS ANTIBODY SCREEN Lab Routine Normal in first trimester 07/09/2024 10:20 AM EDT Health Maintenance Due Date Last Done Comments [...] encounter Visit Diagnoses Diagnosis Normal in first trimester documented in this encounter Care Teams Coagulating Drying Supervisor Relationship Specialty Start Date End Date Theresa Capps DO [address] [place] [address] PCP - General Family Medicine 05/21/24 documented as of this encounter
--- OUTSIDE RECORDS SUMMARY | 2024-12-31 05:15 | External Medical Summary ---
Author Name Unknown Address Unknown Organization [id number]:[place] [facility] [place] [address] [place] [address] Laboratory Report Ordering Provider Test Date Status ELISEBACKER 07/09/2024 10:20:02 Final Observation Date Value Abnormality Reference (Units ) Status Rubella virus IgG Ab [Presence] in Serum 07/09/2024 10:20:02 Positive Abnormal Negative Final A positive result is consist ent with having had rubella virus or vaccination. Performing Location [place] [facility] [place] [address] [place] [address]
--- OUTSIDE RECORDS SUMMARY | 2024-12-31 05:15 | External Medical Summary ---
Author Name Unknown Address Unknown Organization K01:LABORATORY [facility] [place] - [address] [place] [address] Laboratory Report Ordering Provider Test Date Status AL OLIVARESJOSE 07/09/2024 10:20:02 Final Observation Date Value Abnormality Reference (Units ) Status ABO 07/09/2024 10:20:02 O Final RH 07/09/2024 10:20:02 Positive Final RED BLOOD CELL ANTIBODY SCREEN 07/09/2024 10:20:02 Negative Final SPECIMEN EXPIRATION DATE 07/09/2024 10:20:02 07/12/2024 23:59 Final Performing Location LABORATORY [facility] - [address] [place] [address]
[2024-12-31] MEDS ORDERED: LIDOCAINE 1% LOCAL 20 ML VIAL INFIL PRN (05:54)
[2024-12-31] MEDS: BETAMETH SOD PHOS/ACETATE IA 6 MG/ML IM STA (06:36)
--- NOTE | 2024-12-31 06:42 | History & Physical Report ---
Date of Service December 31, 2024 Assessment & Plan (1) premature rupture of membranes (PPROM) delivered, current hospi talization: Plan: Will start GBS prophylaxis Cytotec for cervical ripening Admission and Anticipated Discharge Date Admission Date: December 31, 2024 History of Present Illness Chief Complaint: leakage of fluid Primary Care Provider: Kvng Ness MD 29 F P0000 at 35.1 with spontaneous rupture of membranes at 4 AM this AM confirmed by Nitrazine and Amnisure. Patient is leaking clear fluid. She lost her mucous plug last week and had some spotting then and was seen in the office for visit which was unremarkable. GBS status is unknown. course has been unremarkable. Allergies Allergy/AdvReac Type Severity Reaction Status Date / Time No Known Allergies Allergy Verified 12/31/24 05:23 Home Medications Medication Instructions Recorded Confirmed Type omeprazole magnesium 20 mg 20 mg PO DAILY 12/31/24 12/31/24 History tablet,delayed release (Prilosec OTC) vits no.124-ferrous fum 1 tab PO DAILY 12/31/24 12/31/24 History 27 mg iron-folic acid 800 mcg tablet ( Vitamin) Patient History Medical History Asthma has not needed inhaler for a long time Surgical History [place] teeth removed Social History Smoking Status: Never smoker Hx Alcohol Use: No Hx Substance Use: No Preferred Language: Slovenian Communication Ability: Effective 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 Beliefs That Will Affect Care: None marital status: Current Living Situation: Spouse Other Information That Helps Us Care for You: No Feels Safe at Home: Yes Safety Concerns: Feels Safe At This Time Assistive Devices: None 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 Review of Systems All systems reviewed & are unremarkable except as noted in HPI & below Physical Exam Eyes: PERRL, conjunctivae normal, anicteric sclerae Respiratory: normal respiratory effort, lungs clear to auscultation Cardiovascular: Rate/Rhythm: regular rate and regular rhythm Gastrointestinal (Abdomen): Inspection/Auscultation: abdomen normal to inspection Musculoskeletal: Extremities: extremities normal to inspection Skin: no rashes, warm and dry Neurologic: patellar DTR's 2+ bilat, sensation intact Psychiatric: A+Ox3, euthymic affect Genitourinary: no vaginal lesions, no adnexal mass normal external appearance Manual OB Exam: + cervical dilation 1 cm, + cervical effacement 50% and + station -2 OB Exam Monitor Tracing: + external FHT monitor used, + external uterine monitor used, + category I and + normal FHT variability GBS swab done bedside ultrasound by me confirms vertex presentation will start Cytotec for cervical ripening Results & Data Vital Signs (Past 12 Hours) Vital Signs Temp Pulse Resp BP 12/31/24 05:19 36.9 C 76 18 116/74 Laboratory Results Laboratory Results - last 24 hr 12/31/24 06:28 Amniotic Protein Pending Monitoring External Monitor Cat 1
[2024-12-31 06:54] LABS: Hematocrit (blood only) 34.5 % (37.0-47.0); Hemoglobin 12.1 g/dl (12.0-16.0); Mean Corpuscular Hemoglobin 31.7 pg (25.0-34.0); Mean Corpuscular Hgb Conc 35.1 g/dL (32.0-36.0); Mean Corpuscular Volume 90.3 fL (80.0-100.0); Mean Platelet Volume 9.7 fL (9.4-12.4); Platelet Count 215 K/uL (130-400); RDW Coefficient of Variation 13.2 % (11.5-14.5); RDW Standard Deviation 43.5 fL (36.4-46.3); Red Blood Count 3.82 M/uL (4.20-5.40); White Blood Count 10.03 K/ul (4.8-10.8)
[2024-12-31 07:13] LABS: Albumin Globulin Ratio 1.3 (0.9-2); Albumin Level 3.3 gm/dl (3.4-5.0); BUN Creatinine Ratio 17.6 (10-20); Bilirubin,Total 0.3 mg/dl (0.2-1.0); Calcium 8.4 mg/dl (8.6-10.3); Creatinine Clr Calc Pharmacy 174.5 ml/min; Globulin 2.6 gm/dl (2.5-4.0); Potassium 3.9 mmol/L (3.5-5.1); Total Protein 5.9 gm/dl (6.0-8.3); Uric Acid 5.3 mg/dl (2.6-7.2)
[2024-12-31] MEDS: LACTATED RINGER'S 1,000 ML IV PRN (07:19)
[2024-12-31] MEDS: PENICILLIN GK 6 MU in DEXTROSE 5% 250 ML IV STA (07:20)
[2024-12-31] MEDS: miSOPROStoL 50 MCG TAB PO STA (07:39)
--- NOTE | 2024-12-31 08:48 | Obstetrical Progress Note ---
Date of Service December 31, 2024 Assessment & Plan Admission and Anticipated Discharge Date Admission Date: December 31, 2024 Subjective Patient is seen and examined. Patient is a 29-year-old at 35 weeks and 1 day gestation who was admitted this morning by Dr. Ordonez for PPROM at 4 AM this morning. Her has been uncomplicated. She has a history of exercise-induced asthma, no recent attacks. She denies any other medical problems No surgeries. She denies any history of STDs including chlamydia, gonorrhea, herpes. She was given first dose of p.o. Cytotec at 7:39 AM. heart rate had been category 1. she started having frequent contractions every 1 to 2 minutes after that and had a single episode of heart rate deceleration for about 3 minutes with spontaneous recovery. patient feels crampy, pain is 3-4 out of 10. Does not need pain medication for now. I checked her cervix it is 1 to 2 cm, 70% effaced, central, head is at -2 station but engaged. heart rate is reassuring at this point at 130s with good variability, Continue with IV fluid bolus and monitor closely. Plan not to give any more Cytotec and start low-dose oxytocin per protocol when contractions will space out. Results & Data Vital Signs (Past 12 Hours) Vital Signs Temp Pulse Resp BP O2 Del Method 12/31/24 07:42 61 12/31/24 07:42 124/76 12/31/24 07:04 Room Air 12/31/24 07:00 76 12/31/24 07:00 121/78 12/31/24 05:19 36.9 C 76 18 116/74
[2024-12-31 09:28] LABS: Total Protein Urine Random 8.4 mg/dl (0-11.9)
[2024-12-31 09:33] LABS: Creatinine Urine Random 37.1 mg/dl; Protein Creatinine Ratio Urine 0.2 (0-0.2)
[2024-12-31] MEDS: TERBUTALINE SULFATE 1 MG/ML VIAL SQ ONE (10:11)
[2024-12-31] MEDS ORDERED: LIDOCAINE 2% MPF LOCAL 5 ML VIAL EPI PRN (11:32)
[2024-12-31] MEDS ORDERED: fentANYL 2 MCG/ML BUPIVacaine 0.125%-NSS 100ML BAG EPI PRN (11:32)
[2024-12-31] MEDS ORDERED: ROPIVACAINE 0.5% PF 5 MG/ML 20 ML VIAL EPI PRN (11:32)
[2024-12-31] MEDS ORDERED: NALOXONE HCL 1 MG in SODIUM CHLORIDE 0.9% 1,000 ML IV PRN (11:32)
[2024-12-31] MEDS ORDERED: BUPIVACAINE 0.25% PF 30 ML VIAL EPI PRN (11:32)
[2024-12-31] MEDS ORDERED: SODIUM CHLORIDE 0.9% PF INJ 10 ML VIAL EPI PRN (11:32)
[2024-12-31] MEDS ORDERED: NALOXONE HCL 0.4 MG/1 ML VIAL/CARP IV PRN (11:32)
[2024-12-31] MEDS ORDERED: ePHEDrine sulfate 50 MG/ML AMP IV PRN (11:32)
[2024-12-31] MEDS ORDERED: diphenhydrAMINE 50 MG/ML VIAL IV PRN (11:32)
[2024-12-31] MEDS ORDERED: fentaNYL citrate PF 100 MCG/2 ML VIAL EPI PRN (11:32)
[2024-12-31] MEDS ORDERED: NALBUPHINE HCL INJ 10 MG/ML AMP IV PRN (11:32)
--- NOTE | 2024-12-31 11:35 | Anesthesiology Consultation ---
Date of Service December 31, 2024 Assessment & Plan Chart Review Chart Review: Patient NOT seen in Pre Admission Testing and Acceptable Risk for Labor Epidural Consults Requested none ASA ASA2 Proposed Anesthesia Anesthesia Type: Labor Epidural Risk / Benefits Reviewed With: PT / POA / Parent / Guardian, Accepts Plan and Informed Consent Obtained History Height/Weight Height: 5 ft 6 in Weight: 83.915 kg Allergies Allergy/AdvReac Type Severity Reaction Status Date / Time No Known Allergies Allergy Verified 12/31/24 05:23 Medications Home Medications Medication Instructions Recorded Confirmed Last Taken omeprazole magnesium 20 mg 20 mg PO DAILY 12/31/24 12/31/24 12/30/24 tablet,delayed release (Prilosec OTC) vits no.124-ferrous fum 1 tab PO DAILY 12/31/24 12/31/24 12/31/24 27 mg iron-folic acid 800 mcg tablet ( Vitamin) Active Medications Generic Name Dose Route Start Last Admin Trade Name Freq PRN Reason Stop Dose Admin Lactated Ringer's 1,000 mls @ 150 mls/hr 12/31/24 05:54 12/31/24 11:21 Lr IV 01/01/25 05:53 999 mls/hr .[id number] PRN Infusion L&D Protocol Protocol NPO Date Last Intake of Fluids: 12/31/24 Time Last Intake of Fluids: 10:00 Date Last Intake of Solids: 12/30/24 Time Last Intake of Solids: 18:30 Past Medical History Medical History Asthma has not needed inhaler for a long time Exercise / Class Metabolic Activity 1 > 8 Run/Swim/Ski/Tennis Past Surgical History Surgical History [place] teeth removed Past Anesthesia History No Hx of Anesthesia Complications and No Family Hx of Anesthesia Complications History of PONV No Hx of PONV and No Hx of Motion Sickness Social History Smoking Status: Never smoker Hx Alcohol Use: No Hx Substance Use: No substance use type: does not use Review of Systems ROS Unobtainable: All systems reviewed & are unremarkable except as noted in HPI & below Physical Exam Vital Signs Last Vital Signs Temp 37.0 C 12/31/24 11:04 Pulse 79 04/21/25 11:30 Resp 20 12/31/24 11:04 BP 132/66 12/31/24 11:06 Pulse Ox 100 12/31/24 11:30 O2 Del Method Room Air 12/31/24 07:04 ENMT Mouth: no TMJ abnormality Thyromental Distance: > or= 3.5 Finger Breadths Mallampati Class: II Neck normal visual inspection and trachea midline; neck extension not limited Respiratory normal respiratory effort Auscultation: lungs clear to auscultation bilaterally Cardiovascular Rate/Rhythm: regular rate and regular rhythm Heart Sounds: no murmur Musculoskeletal Spine: normal cervical ROM Extremities: full ROM of extremities Neurologic moves all extremities Psychiatric Orientation: alert and oriented x 3 Testing Laboratory Results 12/31/24 06:37 12/31/24 06:37
[2024-12-31] MEDS: BUPIVACAINE 0.25% PF 30 ML VIAL ONE (11:48)
[2024-12-31] MEDS: LIDOCAINE 2%/EPINEPHRINE 1:200,000 20 ML PF ONE (11:48)
[2024-12-31] MEDS: fentaNYL citrate PF 100 MCG/2 ML VIAL ONE (11:48)
[2024-12-31] MEDS: fentANYL 2 MCG/ML BUPIVacaine 0.125%-NSS 100ML BAG ONE (11:50)
[2024-12-31] MEDS: PENICILLIN GK 3 MU in DEXTROSE 5% 100 ML IV PRN (11:54)
[2024-12-31] MEDS ORDERED: OXYTOCIN 30 UNITS/NSS 30 UNITS/500 ML BAG IV PRN ×2 (12:00→15:05)
--- NOTE | 2024-12-31 14:21 | Obstetrical Progress Note ---
Date of Service December 31, 2024 Assessment & Plan Admission and Anticipated Discharge Date Admission Date: December 31, 2024 Subjective Patient ended up getting Terbutaline to ease contractions, then received epidural for pain Comfortable now, resting Her nurse checked her cervix and was 7/80%/0 FHR categ I Continut to monitor closely Results & Data Vital Signs (Past 12 Hours) Vital Signs Temp Pulse Resp BP Pulse Ox O2 Del Method 12/31/24 14:15 98 12/31/24 14:15 77 12/31/24 14:13 71 12/31/24 14:13 105/55 L 12/31/24 14:10 98 12/31/24 14:10 75 12/31/24 14:05 98 12/31/24 14:05 73 12/31/24 14:00 98 12/31/24 14:00 73 12/31/24 13:58 71 12/31/24 13:58 113/63 12/31/24 13:55 98 12/31/24 13:55 71 12/31/24 13:50 99 12/31/24 13:50 76 12/31/24 13:45 100 12/31/24 13:45 70 12/31/24 13:44 77 12/31/24 13:44 111/57 L 12/31/24 13:40 100 12/31/24 13:40 83 12/31/24 13:35 100 12/31/24 13:35 76 12/31/24 13:30 100 12/31/24 13:30 76 12/31/24 13:29 80 12/31/24 13:29 107/56 L 12/31/24 13:25 99 12/31/24 13:25 74 12/31/24 13:20 100 12/31/24 13:20 78 12/31/24 13:15 100 12/31/24 13:15 93 H 12/31/24 13:13 92 H 12/31/24 13:13 105/63 12/31/24 13:10 98 12/31/24 13:10 99 H 12/31/24 13:05 100 12/31/24 13:05 76 12/31/24 13:00 18 12/31/24 13:00 36.9 C 18 12/31/24 13:00 99 12/31/24 13:00 78 12/31/24 12:59 76 12/31/24 12:59 105/58 L 12/31/24 12:55 99 12/31/24 12:55 78 12/31/24 12:50 99 12/31/24 12:50 82 12/31/24 12:45 99 12/31/24 12:45 78 12/31/24 12:43 86 12/31/24 12:43 109/59 L 12/31/24 12:40 100 12/31/24 12:40 87 12/31/24 12:35 99 12/31/24 12:35 82 12/31/24 12:30 18 12/31/24 12:30 18 12/31/24 12:30 98 12/31/24 12:30 82 12/31/24 12:29 94 12/31/24 12:29 76 12/31/24 12:28 81 12/31/24 12:28 121/71 12/31/24 12:25 99 12/31/24 12:25 85 12/31/24 12:20 100 12/31/24 12:20 74 12/31/24 12:15 98 12/31/24 12:15 85 12/31/24 12:12 86 12/31/24 12:12 117/69 12/31/24 12:10 98 12/31/24 12:10 78 12/31/24 12:08 90 12/31/24 12:08 122/73 12/31/24 12:05 98 12/31/24 12:05 76 12/31/24 12:02 85 12/31/24 12:02 123/65 12/31/24 12:00 97 12/31/24 12:00 84 12/31/24 12:00 83 12/31/24 12:00 126/63 12/31/24 11:58 80 12/31/24 11:58 124/65 12/31/24 11:56 76 12/31/24 11:56 124/67 12/31/24 11:55 97 12/31/24 11:55 81 12/31/24 11:54 78 12/31/24 11:54 128/69 12/31/24 11:52 76 12/31/24 11:52 131/72 12/31/24 11:50 97 12/31/24 11:50 81 12/31/24 11:50 78 12/31/24 11:50 132/71 12/31/24 11:48 78 12/31/24 11:48 136/72 12/31/24 11:46 75 12/31/24 11:46 136/67 12/31/24 11:45 99 12/31/24 11:45 78 12/31/24 11:44 85 12/31/24 11:44 142/65 H 12/31/24 11:43 76 12/31/24 11:43 146/85 H 12/31/24 11:40 100 12/31/24 11:40 77 12/31/24 11:35 99 12/31/24 11:35 77 12/31/24 11:30 18 12/31/24 11:30 18 12/31/24 11:30 100 12/31/24 11:30 79 12/31/24 11:25 99 12/31/24 11:25 89 12/31/24 11:06 86 12/31/24 11:06 132/66 12/31/24 11:04 20 12/31/24 11:04 37.0 C 20 12/31/24 10:30 20 12/31/24 10:30 20 12/31/24 10:00 18 12/31/24 10:00 18 12/31/24 09:42 69 12/31/24 09:42 113/68 12/31/24 09:37 18 12/31/24 09:37 36.9 C 18 12/31/24 08:44 68 12/31/24 08:44 122/78 12/31/24 07:42 61 12/31/24 07:42 124/76 12/31/24 07:04 Room Air 12/31/24 07:00 76 12/31/24 07:00 121/78 12/31/24 05:19 36.9 C 76 18 116/74
[2024-12-31] MEDS: OXYTOCIN 30 UNITS/NSS 30 UNITS/500 ML BAG IV PRN (14:48)
[2024-12-31] MEDS ORDERED: HYDROCORTISONE ACETATE 25 MG SUPP PR PRN (15:05)
[2024-12-31] MEDS ORDERED: bisacodyL 10 MG SUPP PR PRN (15:05)
--- NOTE | 2024-12-31 15:12 | Delivery Summary ---
Vaginal Delivery Summary Date of Service December 31, 2024 Vaginal Delivery Summary FHR had deceleartion to 70's and patient felt pressure. Patient was found to be fully dilated and desires to push. Unable to resolve deceleration with position changes. Head was at +3 station, sagittal suture is anterior posterior, small/posterior fontanelle at 6 o'clock position, TV plastic vacuum cup was placed over the vertex about 3 cm anterior to the posterior fontanelle. with the patient pushing Q acute was applied at the green zone with a constant pull no pop offs. It brought the head down a hair visible on the perineum. And then we took off for about a minute when contraction was over. there was a tight hymenal ring band which was incised with the tip of scissor. it was Not an episiotomy. Then with the second push and constant pull head was delivered without difficulty. She pushed with total of 3 contractions then shoulders came spontaneously. The baby was handed off to the mother. The cord was very short, the baby was kept low on the mom's abdomen and then it was clampedx2 and cut. The vagina and perineum were checked and found to have 2nd degree perineal laceration. Rectal exam was done and noted good sphincter tone. The gloves were changes. The vaginal mucosa was repaired with 2/0 vicryl and skin on subcuticular fashion. The placenta was delivered spontaneously as intact and complete. The uterus was explored and found to be empty. QBL was 152 ml. The fundus was firm The baby was a viable female infant, Apgars 8/9, the weight is pending The mother and the baby tolerated the procedure well. No complications happened and I was present during whole procedure. Onboarding Specialist , Dr Nassar was present during delivery.
--- NOTE | 2024-12-31 16:57 | Anesthesia Procedure Note ---
Date of Service December 31, 2024 Anesthesia Post Epidural Note Vital Signs Vital Signs: Temp Pulse Resp BP Pulse Ox O2 Del Method 37.0 C 65 18 118/66 100 Room Air 12/31/24 16:05 12/31/24 16:51 12/31/24 16:05 12/31/24 16:51 12/31/24 14:45 12/31/24 07:04 Pain Intensity Abdomen: Pain Intensity: 0 Notes Mental Status: alert / awake / arousable Nausea / Vomiting: adequately controlled Pain: adequately controlled Airway Patency, RR, SpO2: stable & adequate BP & HR: stable & adequate Hydration State: stable & adequate Neuraxial Anesthesia: was administered and sensory block is resolving Anesthetic Complications: no major complications apparent and Pt Satisfied with anesthetic care Epidural: Removed without complications and With tip intact
[2024-12-31] MEDS: ePHEDrine sulfate 50 MG/ML AMP ONE (17:39)
[2024-12-31] MEDS: SODIUM CHLORIDE 0.9% PF INJ 10 ML VIAL EPI STA (17:40)
[2024-12-31] MEDS: LIDOCAINE 2%/EPINEPHRINE 1:200,000 20 ML PF EPI STA (17:40)
[2024-12-31] MEDS: SODIUM CHLORIDE 0.9% PF INJ 10 ML VIAL ONE (17:40)
[2024-12-31] MEDS: BUPIVACAINE 0.25% PF 30 ML VIAL EPI STA (17:40)
[2024-12-31] MEDS: fentaNYL citrate PF 100 MCG/2 ML VIAL EPI STA (17:40)
[2024-12-31] MEDS: DIPHTHER/TETAN/PERTUS Vaccine (Tdap, Adol/Adult) 0.5mL IM ONE (17:41)
[2024-12-31] MEDS: MEASLES, MUMPS & RUBELLA VIRUS VACCINE (MMR) 0.5ML VIAL SQ ONE (17:41)
[2024-12-31] MEDS: IBUPROFEN 600 MG TAB PO PRN (19:07)
[2024-12-31] MEDS: DOCUSATE SODIUM 100 MG CAP PO SCH (19:21)
[2024-12-31] MEDS: BENZOCAINE 20% SPRY 85 APPLN/85 GM CAN EXT PRN (21:20)
[2025-01-01] MEDS: ACETAMINOPHEN 325 MG TAB PO PRN (01:29)
[2025-01-01 06:20] LABS: Hematocrit (blood only) 28.8 % (37.0-47.0); Hemoglobin 9.8 g/dl (12.0-16.0); Mean Corpuscular Hemoglobin 31.1 pg (25.0-34.0); Mean Corpuscular Volume 91.4 fL (80.0-100.0); Mean Platelet Volume 9.9 fL (9.4-12.4); Platelet Count 204 K/uL (130-400); RDW Coefficient of Variation 13.4 % (11.5-14.5); RDW Standard Deviation 44.2 fL (36.4-46.3); Red Blood Count 3.15 M/uL (4.20-5.40); White Blood Count 18.37 K/ul (4.8-10.8)
[2025-01-01] MEDS: FERROUS SULFATE 325 MG TAB PO SCH (07:35)
[2025-01-01] MEDS: PRENATAL VITAMIN 1 TAB PO SCH (07:35)
--- NOTE | 2025-01-01 11:03 | Obstetrical Progress Note ---
Date of Service January 01, 2025 Assessment & Plan Admission and Anticipated Discharge Date Admission Date: December 31, 2024 Subjective Patient is seen and examined. She feels well, no complaints. Ambulating without dizziness Voiding without difficulty Tolerating regular diet with out N&V Bleeding is minimal No fever/ chills/ CP/ SOB/ N&V/ Leg pain Pumping milk, baby is in nursery Vital Signs Temp Pulse Resp BP Pulse Ox O2 Del Method 01/01/25 07:24 36.7 C 64 16 114/70 98 Room Air 01/01/25 03:00 36.6 C 64 16 104/61 Room Air Lab Results 12/31/24 12/31/24 12/31/24 Range/Units 06:28 06:37 08:35 WBC 10.03 (4.8-10.8) K/ul RBC 3.82 L (4.20-5.40) M/uL Hgb 12.1 (12.0-16.0) g/dl Hct 34.5 L (37.0-47.0) % MCV 90.3 (80.0-100.0) fL MCH 31.7 (25.0-34.0) pg MCHC 35.1 (32.0-36.0) g/dL RDW Std Deviation 43.5 (36.4-46.3) fL RDW Coeff of Ozzy 13.2 (11.5-14.5) % Plt Count 215 (130-400) K/uL MPV 9.7 (9.4-12.4) fL Sodium 137 (136-145) mmol/L Potassium 3.9 (3.5-5.1) mmol/L Chloride 109 H (98-107) mmol/L Carbon Dioxide 21 (21-32) mmol/L Anion Gap 7 (3-11) BUN 9 (6-23) mg/dl Creatinine 0.51 L (0.6-1.2) mg/dl Est Cr Clr Drug Dosing 174.5 ml/min eGFR 127.90 BUN/Creatinine Ratio 17.6 (10-20) Glucose 84 (70-99(Fasting)) mg/dl Uric Acid 5.3 (2.6-7.2) mg/dl Calcium 8.4 L (8.6-10.3) mg/dl Total Bilirubin 0.3 (0.2-1.0) mg/dl Direct Bilirubin 0.0 (0-0.2) mg/dl AST 21 (13-39) U/L ALT 17 (7-52) U/L Alkaline Phosphatase 64 (34-104) U/L Lactate Dehydrogenase 152 (86-244) U/L Total Protein 5.9 L (6.0-8.3) gm/dl Albumin 3.3 L (3.4-5.0) gm/dl Globulin 2.6 (2.5-4.0) gm/dl Albumin/Globulin Ratio 1.3 (0.9-2) Ur Random Creatinine 37.1 mg/dl U Random Total Protein 8.4 (0-11.9) mg/dl Protein/Creatinin Ratio 0.2 (0-0.2) Amniotic Protein POS Treponema pallidum Ab Negative (Negative) 01/01/25 Range/Units 05:56 WBC 18.37 H (4.8-10.8) K/ul RBC 3.15 L (4.20-5.40) M/uL Hgb 9.8 L (12.0-16.0) g/dl Hct 28.8 L (37.0-47.0) % MCV 91.4 (80.0-100.0) fL MCH 31.1 (25.0-34.0) pg MCHC 34.0 (32.0-36.0) g/dL RDW Std Deviation 44.2 (36.4-46.3) fL RDW Coeff of Ozzy 13.4 (11.5-14.5) % Plt Count 204 (130-400) K/uL MPV 9.9 (9.4-12.4) fL Sodium (136-145) mmol/L Potassium (3.5-5.1) mmol/L Chloride (98-107) mmol/L Carbon Dioxide (21-32) mmol/L Anion Gap (3-11) BUN (6-23) mg/dl Creatinine (0.6-1.2) mg/dl Est Cr Clr Drug Dosing ml/min eGFR BUN/Creatinine Ratio (10-20) Glucose (70-99(Fasting)) mg/dl Uric Acid (2.6-7.2) mg/dl Calcium (8.6-10.3) mg/dl Total Bilirubin (0.2-1.0) mg/dl Direct Bilirubin (0-0.2) mg/dl AST (13-39) U/L ALT (7-52) U/L Alkaline Phosphatase (34-104) U/L Lactate Dehydrogenase (86-244) U/L Total Protein (6.0-8.3) gm/dl Albumin (3.4-5.0) gm/dl Globulin (2.5-4.0) gm/dl Albumin/Globulin Ratio (0.9-2) Ur Random Creatinine mg/dl U Random Total Protein (0-11.9) mg/dl Protein/Creatinin Ratio (0-0.2) Amniotic Protein Treponema pallidum Ab (Negative) PE: General: Alert, orientedx3, NAD Abd: soft, NT, fundus firm, below Umbilicus Perineum intact, Lochia rubra minimal Ext; NT, no edema AP: 29 yo s/p PPROM, , ppd# 1 VSS Afebrile doing well Continue routine care All questions were answered Results & Data Vital Signs (Past 12 Hours) Vital Signs Temp Pulse Resp BP Pulse Ox O2 Del Method 01/01/25 07:24 36.7 C 64 16 114/70 98 Room Air 01/01/25 03:00 36.6 C 64 16 104/61 Room Air
[2025-01-01] MEDS: oxyCODONE/ACETAMINOPHEN 5mg/325mg TAB PO PRN (11:06)
[2025-01-01] MEDS: bisacodyL 5 MG TABEC PO SCH (21:17)
[2025-01-02 06:00] LABS: Basophils # (auto) 0.05 K/uL (0.00-0.20); Basophils % (auto) 0.4 %; Eosinophils # (auto) 0.14 K/uL (0.00-0.50); Eosinophils % (auto) 1.1 %; Hematocrit (blood only) 30.7 % (37.0-47.0); Hemoglobin 10.4 g/dl (12.0-16.0); Immature Granulocytes # (auto) 0.19 K/uL (0.01-0.20); Immature Granulocytes % (auto) 1.5 %; Lymphocytes # (auto) 3.77 K/uL (1.20-3.40); Lymphocytes % (auto) 29.7 %; Mean Corpuscular Hemoglobin 31.3 pg (25.0-34.0); Mean Corpuscular Hgb Conc 33.9 g/dL (32.0-36.0); Mean Corpuscular Volume 92.5 fL (80.0-100.0); Mean Platelet Volume 9.5 fL (9.4-12.4); Monocytes # (auto) 0.93 K/uL (0.11-0.59); Monocytes % (auto) 7.3 %; Neutrophils # (auto) 7.62 K/uL (1.40-6.50); Platelet Count 205 K/uL (130-400); RDW Coefficient of Variation 13.9 % (11.5-14.5); RDW Standard Deviation 46.6 fL (36.4-46.3); Red Blood Count 3.32 M/uL (4.20-5.40)
[2025-01-02 08:31] VITALS: BP 114/73; RESP 16; TEMP 98.4; O2SAT 97
--- NOTE | 2025-01-02 11:03 | Obstetrical Progress Note ---
Date of Service January 02, 2025 Assessment & Plan Admission and Anticipated Discharge Date Admission Date: December 31, 2024 Subjective abdomen soft and non tender no calf tenderness ambulating well vaginal bleeding scant hgb 10.4 Results & Data Vital Signs (Past 12 Hours) Vital Signs Temp Pulse Resp BP Pulse Ox O2 Del Method 01/02/25 08:10 36.9 C 62 16 114/73 97 Room Air 01/01/25 23:30 36.7 C 72 18 125/76 Room Air
[2025-01-02 13:37] VITALS: PULSE 64
== END 2025-01-02 19:00 | disposition home health service (06) | DRG 768 ==
LOC: OPB 05:03 → 4S1 05:10 → 4E2 17:30